=== PATIENT | male | born 1945 | race African-American/Black ===

== ENCOUNTER 2017-01-18 14:55 | Inpatient (IN) | payer MEDICARE ==
--- NOTE | 2017-01-18 14:59 | ER Document Report ---
ED Medical Screen (RME) - General Stated Complaint: CHEST PAIN Notes: Patient is a 71-year-old male presents emergency Department complaining of nonproductive cough with associated chest pain, nasal and chest congestion, fever. denies COPD, asthma, smokes weed. lower lobe wheezing bilaterally, NAD, alert. I have greeted and performed a rapid initial assessment of this patient. A comprehensive ED assessment and evaluation of the patient, analysis of test results and completion of the medical decision making process will be conducted by additional ED providers. TRAVEL OUTSIDE OF THE [place] IN LAST 30 DAYS: No - Related Data Allergies/Adverse Reactions: No Known Allergies Allergy (Verified 01/07/15 16:06) Past Medical History - Past Medical History Cardiac Medical History: Reports: Hx Hypercholesterolemia, Hx Hypertension Denies: Hx Coronary Artery Disease, Hx Heart Attack Pulmonary Medical History: Denies: Hx Asthma, Hx Bronchitis, Hx COPD, Hx Pneumonia Neurological Medical History: Denies: Hx Cerebrovascular Accident, Hx Seizures Endocrine Medical History: Reports: Hx Diabetes Mellitus Type 2 Musculoskeltal Medical History: Reports Hx Arthritis, Reports Hx Gout Psychiatric Medical History: Denies: Hx Depression Past Surgical History: Reports: Hx Cardiac Catheterization. Denies: Hx Pacemaker - Immunizations Hx Diphtheria, Pertussis, Tetanus Vaccination: No
[2017-01-18] MEDS ORDERED: ALBUTEROL SULFATE 0.083% NEB 2.5 MG/3 ML AMPUL NEB ONE (15:03)
[2017-01-18] MEDS ORDERED: IPRATROPIUM/ALBUTEROL 0.5-2.5 MG/3 ML AMPUL NEB ONE (15:36)
[2017-01-18] MEDS ORDERED: PREDNISONE 20 MG TABLET PO ONE (15:36)
[2017-01-18 15:40] LABS: ABSOLUTE LYMPHOCYTES (AUTO) 0.6 10^3/uL (0.5-4.7); ABSOLUTE MONOCYTES (AUTO) 0.5 10^3/uL (0.1-1.4); ABSOLUTE NEUT (AUTO) 4.1 10^3/uL (1.7-8.2); BASOPHILS % (AUTO) 0.9 % (0-2); EOSINOPHILS % (AUTO) 0.1 % (0-6); HEMATOCRIT 48.4 % (37.9-51.0); HEMOGLOBIN 16.3 g/dL (13.5-17.0); HGB HCT DIFFERENCE 0.5; LYMPHOCYTES % (AUTO) 11.6 % (13-45); MEAN CORPUSCULAR HEMOGLOBIN 29.4 pg (27.0-33.4); MEAN CORPUSCULAR HGB CONC 33.6 g/dL (32.0-36.0); MEAN CORPUSCULAR VOLUME 88 fl (80-97); MONOCYTES % (AUTO) 8.7 % (3-13); RED BLOOD COUNT 5.52 10^6/uL (4.35-5.55); SEGMENTED NEUTROPHILS % (AUTO) 78.7 % (42-78); WHITE BLOOD COUNT 5.3 10^3/uL (4.0-10.5)
--- NOTE | 2017-01-18 15:42 | ER Document Report ---
ED Respiratory Problem - General Chief Complaint: Cough Stated Complaint: CHEST PAIN Time seen by provider: 15:37 Mode of Arrival: Ambulatory Information source: Patient Notes: 71-year-old male presents to ED for cough congestion body aches chest pain nasal drainage fever for the last couple days. He states he does not smoke but he does smoke weed. TRAVEL OUTSIDE OF THE [place] IN LAST 30 DAYS: No - HPI Patient complains to provider of: Other - Cough congestion and body aches chest pain Onset: Last week Duration: Continuous - Last week Initiating Event: URI Quality of pain: Achy Severity: Severe Pain Level: 3 Context: Other - States he smokes "weed" does not smoke cigarettes Short of Breath: Moderate Chest pain/discomfort: Tightness Cough: Nonproductive Sputum amount: None Associated symptoms: Cough, Fever, PND, Runny nose, Short of breath, Wheezing Similar symptoms previously: Yes Recently seen / treated by doctor: No - Related Data Allergies/Adverse Reactions: No Known Allergies Allergy (Verified 01/07/15 16:06) Past Medical History - General Information source: Patient - Social History Smoking Status: Never Smoker Cigarette use (# per day): No Chew tobacco use (# tins/day): No Smoking Education Provided: No Frequency of alcohol use: None Drug Abuse: Marijuana Lives with: Family Family History: Arthritis, Hyperlipidemia, Hypertension Patient has suicidal ideation: No Patient has homicidal ideation: No - Past Medical History Cardiac Medical History: Reports: Hx Hypercholesterolemia, Hx Hypertension Pulmonary Medical History: Reports: None EENT Medical History: Reports: None Endocrine Medical History: Reports: Hx Diabetes Mellitus Type 2 Renal/ Medical History: Reports: None Malignancy Medical History: Reports None GI Medical History: Reports: None Musculoskeltal Medical History: Reports Hx Arthritis, Reports Hx Gout Skin Medical History: Reports None Psychiatric Medical History: Reports: None Traumatic Medical History: Reports: None Infectious Medical History: Reports: None Past Surgical History: Reports: Hx Cardiac Catheterization - Immunizations Immunizations up to date: No Hx Diphtheria, Pertussis, Tetanus Vaccination: No History of Influenza Vaccine for 08/2016 - 01/2017 Season: No Review of Systems - Review of Systems Constitutional: Fever EENT: Nose discharge, Sinus discharge Cardiovascular: Chest pain - From cough Respiratory: Cough, Short of breath, Wheezing Gastrointestinal: No symptoms reported Genitourinary: No symptoms reported Male Genitourinary: No symptoms reported Musculoskeletal: Other - Bodyaches Skin: No symptoms reported Hematologic/Lymphatic: No symptoms reported Neurological/Psychological: No symptoms reported Physical Exam - Vital signs Vitals: Temp Pulse Resp BP Pulse Ox 98.9 F 86 20 132/74 H 92 01/18/17 15:01 01/18/17 15:01 01/18/17 15:01 01/18/17 15:01 01/18/17 15:01 Interpretation: Normal - General General appearance: Appears well, Alert - HEENT Head: Normocephalic, Atraumatic Eyes: Normal Pupils: PERRL Ears: Normal External canal: Normal Tympanic membrane: Normal Sinus: Normal Nasal: Purulent discharge, Swelling Mouth/Lips: Normal Mucous membranes: Normal Pharynx: Post nasal drainage Neck: Normal - Respiratory Respiratory status: No respiratory distress Chest status: Pain with deep breathing Breath sounds: Nonproductive cough, Wheezing Chest palpation: Normal - Cardiovascular Rhythm: Regular Heart sounds: Normal auscultation Murmur: No - Abdominal Inspection: Normal Distension: No distension Bowel sounds: Normal Tenderness: Nontender Organomegaly: No organomegaly - Back Back: Normal, Nontender - Extremities General upper extremity: Normal inspection, Nontender, Normal color, Normal ROM , Normal temperature General lower extremity: Normal inspection, Nontender, Normal color, Normal ROM , Normal temperature, Normal weight bearing. No: Blue's sign - Neurological Neuro grossly intact: Yes Cognition: Normal Orientation: AAOx4 [place] Coma Scale Eye Opening: Spontaneous [place] Coma Scale Verbal: Oriented [place] Coma Scale Motor: Obeys Commands [place] Coma Scale Total: 15 Speech: Normal Motor strength normal: LUE, RUE, LLE, RLE Sensory: Normal - Psychological Associated symptoms: Normal affect, Normal mood - Skin Skin Temperature: Warm Skin Moisture: Dry Skin Color: Normal Course - Re-evaluation Re-evalutation: 01/18/17 19:[address] Casanova and had him examine patient. He recommended patient be ambulated on pulse ox to see what his oxygen does when walking. He walked about to the door and his pulse ox was down to 88 is rest respirations are up to 28 so he was returned to bed. After repositioning the patient several times his O2 went back up to 92. States his lungs feel tight. Dr. Casanova recommended admitting the patient overnight for observation. Dr. Muñiz was paged and when he returned his call stated he would admit him for telemetry FOR COPD exacerbation. When I went in to speak to the patient the patient was scratched on in the bed again and his O2 sat was 89. Repositioning the patient and his O2 went straight back up to 92. - Vital Signs Vital signs: Temp Pulse Resp BP Pulse Ox 98.9 F 86 19 140/55 H 92 01/18/17 15:01 01/18/17 15:01 01/18/17 19:01 01/18/17 19:00 01/18/17 19:01 - Laboratory Result Diagrams: 01/18/17 15:14 01/18/17 15:14 Laboratory results interpreted by me: 01/18/17 01/18/17 01/18/17 15:14 15:14 15:14 RDW 15.0 H Seg Neutrophils % 78.7 H Lymphocytes % 11.6 L Carbon Dioxide 21 L BUN 21 H Glucose 115 H Creatine Kinase 244 H - Diagnostic Test Radiology reviewed: Image reviewed, Reports reviewed Discharge - Discharge Clinical Impression: COPD exacerbation Disposition: ADMITTED OBSERVATION [facility] Admitted: Telemetry
[2017-01-18 15:51] LABS: ALANINE AMINOTRANSFERASE 39 U/L (21-72); ALKALINE PHOSPHATASE 109 U/L (38-126); ANION GAP 16 (5-19); ASPARTATE AMINO TRANSFERASE 50 U/L (17-59); BILIRUBIN,TOTAL 0.6 mg/dL (0.2-1.3); BLOOD UREA NITROGEN 21 mg/dL (7-20); CALCIUM 8.8 mg/dL (8.4-10.2); CARBON DIOXIDE 21 mmol/L (22-30); CHLORIDE 104 mmol/L (98-107); CREATININE RESULT 1.15 mg/dL (0.52-1.25); GLUCOSE 115 mg/dL (75-110); POTASSIUM 3.9 mmol/L (3.6-5.0); SODIUM 140.5 mmol/L (137-145); TOTAL PROTEIN 7.3 g/dL (6.3-8.2)
[2017-01-18 16:07] LABS: CREATINE KINASE MB < 0.22 ng/mL (<4.55); TROPONIN I < 0.012 ng/mL
--- NOTE | 2017-01-18 16:07 | EKG REPORT ---
SEVERITY:- ABNORMAL ECG - SINUS RHYTHM BIATRIAL ABNORMALITIES : Confirmed by: Oralia Andino MD 18-Jan-2017 16:06:33
[2017-01-18] MEDS ORDERED: LACTULOSE SYRUP 20 GM/30 ML UDCUP PO ONE (19:34)
[2017-01-18] MEDS ORDERED: ACETAMINOPHEN 325 MG TABLET PO PRN (19:36)
[2017-01-18] MEDS ORDERED: GLUCAGON,HUMAN RECOMB 1 MG INJ IM PRN (19:36)
[2017-01-18] MEDS ORDERED: DEXTROSE 40% GEL 15 GM TUBE PO PRN ×2 (19:36)
[2017-01-18] MEDS ORDERED: ONDANSETRON HCL INJ/PF 4 MG/2 ML SDV IV PRN (19:36)
[2017-01-18] MEDS ORDERED: IPRATROPIUM/ALBUTEROL 0.5-2.5 MG/3 ML AMPUL NEB PRN (19:36)
[2017-01-18] MEDS ORDERED: DEXTROSE 50%-WATER 25 GM/50 ML DISP.SYRIN IV PRN ×2 (19:36)
[2017-01-18] MEDS ORDERED: FLUTICASONE NASAL SPRAY 50 MCG/SPRY 120 SPRAY/16 GM NASL ONE (20:00)
[2017-01-18] MEDS ORDERED: LORATADINE 10 MG TABLET PO ONE (20:00)
[2017-01-18] MEDS: IPRATROPIUM/ALBUTEROL 0.5-2.5 MG/3 ML AMPUL NEB SCH (20:46)
[2017-01-18 20:53] LABS: ARTERIAL BLOOD BASE EXCESS -2.7 mmol/L; ARTERIAL BLOOD O2 SATURATION 79.6 % (94-98)
[2017-01-18] MEDS: HEPARIN SOD (PORCINE) 5,000 UNIT/ML 1 ML SYRINGE SUBCUT SCH (22:53)
[2017-01-19] MEDS: INSULIN LISPRO 100 UNIT/ML 3 ML VIAL SUBCUT PRN (00:48)
[2017-01-19] MEDS ORDERED: LEVOFLOXACIN 750 MG/D5W RTU 750 MG/150 ML RTUPB IV ONE (01:00)
[2017-01-19] MEDS: IPRATROPIUM/ALBUTEROL 0.5-2.5 MG/3 ML AMPUL NEB SCH ×4 (02:39→21:00)
[2017-01-19 05:52] LABS: ABSOLUTE LYMPHOCYTES (AUTO) 0.5 10^3/uL (0.5-4.7); ABSOLUTE MONOCYTES (AUTO) 0.4 10^3/uL (0.1-1.4); ABSOLUTE NEUT (AUTO) 1.8 10^3/uL (1.7-8.2); EOSINOPHILS % (AUTO) 0.2 % (0-6); HEMATOCRIT 48.9 % (37.9-51.0); HEMOGLOBIN 16.5 g/dL (13.5-17.0); HGB HCT DIFFERENCE 0.6; LYMPHOCYTES % (AUTO) 18.5 % (13-45); MEAN CORPUSCULAR HEMOGLOBIN 29.6 pg (27.0-33.4); MEAN CORPUSCULAR HGB CONC 33.8 g/dL (32.0-36.0); MEAN CORPUSCULAR VOLUME 88 fl (80-97); MONOCYTES % (AUTO) 15.3 % (3-13); RED BLOOD COUNT 5.58 10^6/uL (4.35-5.55); RED CELL DISTRIBUTION WIDTH 14.8 % (11.5-14.0)
[2017-01-19 06:11] LABS: ANION GAP 17 (5-19); BLOOD UREA NITROGEN 18 mg/dL (7-20); CALCIUM 9.1 mg/dL (8.4-10.2); CARBON DIOXIDE 19 mmol/L (22-30); CHLORIDE 105 mmol/L (98-107); CREATININE RESULT 0.87 mg/dL (0.52-1.25); GLUCOSE 151 mg/dL (75-110); POTASSIUM 4.3 mmol/L (3.6-5.0); SODIUM 140.9 mmol/L (137-145)
[2017-01-19 06:17] LABS: WHITE BLOOD COUNT 2.8 10^3/uL (4.0-10.5)
--- NOTE | 2017-01-19 06:21 | PDOC H&P ---
History of Present Illness Admission Date/PCP: 01/18/17 19:36 Patient complains of: Shortness of breath and cough History of Present Illness: MICHAEL JIMENEZ is a 71 year old male with a past medical history of asthma, hypertension, osteoarthritis, and gout who had been in his usual state of health until approximately 3 days prior to presentation with the onset of a productive cough of yellow sputum and shortness of breath subjective fever and chills denies rhinorrhea or sore throat. In the emergency room his found to have an oxygen saturation in the 80s and tachycardic on ambulation Denying chest pain or palpitations or nausea vomiting. Denies recent antibiotics or infectious contacts Past Medical History Cardiac Medical History: Reports: Hyperlipidema, Hypertension Denies: Coronary Artery Disease, Myocardial Infarction Pulmonary Medical History: Reports: None, Chronic Obstructive Pulmonary Disease (COPD) Denies: Asthma, Bronchitis, Pneumonia, Tuberculosis EENT Medical History: Reports: None Neurological Medical History: Denies: Seizures Endocrine Medical History: Reports: Diabetes Mellitus Type 2 Renal/ Medical History: Reports: None Denies: End Stage Renal Disease Malignancy Medical History: Reports: None GI Medical History: Reports: None Denies: Cirrhosis, Gastroesophageal Reflux Disease Musculoskeltal Medical History: Reports: Arthritis, Gout Skin Medical History: Reports: None Psychiatric Medical History: Reports: None Denies: Bipolar Disorder, Depression Traumatic Medical History: Reports: None Hematology: Denies: Anemia, Bleeding Tendencies Infectious Medical History: Reports: None Past Surgical History Past Surgical History: Reports: Cardiac Catheterization Denies: Pacemaker Social History Information Source: Patient Lives with: Family Smoking Status: Never Smoker Frequency of Alcohol Use: None Hx Recreational Drug Use: Yes Drugs: Marijuana Hx Prescription Drug Abuse: Yes - Advance Directive Resuscitation Status: Full Code Family History Family History: Arthritis, Hyperlipidemia, Hypertension Parental Family History Reviewed: Yes Children Family History Reviewed: Yes Sibling(s) Family History Reviewed.: Yes Medication/Allergy Home Medications: Allopurinol [Zyloprim 300 mg Tablet] 300 mg PO DAILY 12/05/14 Ergocalciferol (Vitamin D2) [Vitamin D2] 50,000 unit PO Q7D 12/05/14 Etodolac 400 mg PO BID 12/05/14 Metformin HCl [Glucophage] 500 mg PO BIDACBS 12/05/14 Nateglinide [Starlix 60 mg Tablet] 60 mg PO TID 12/05/14 Nifedipine [Nifedipine ER] 90 mg PO DAILY 12/05/14 Triamcinolone Acetonide [Aristocort 0.1% Cream] 1 applic TP BID 12/05/14 Amitriptyline HCl 25 mg PO HSP 01/18/17 Amlodipine Besylate [Amlodipine Besylate] 10 mg PO DAILY 01/18/17 Atorvastatin Calcium 40 mg PO DAILY 01/18/17 Fenofibrate,Micronized [Fenofibrate] 134 mg PO DAILY 01/18/17 Glimepiride [Glimepiride] 2 mg PO DAILY 01/18/17 Hydrocodone/Acetaminophen [Vicodin 5-300 mg Tablet] 1 - 2 tab PO ASDIR PRN 01/18 Allergies/Adverse Reactions: No Known Allergies Allergy (Verified 01/07/15 16:06) Review of Systems Constitutional: ABSENT: chills, fever(s), headache(s), weight gain, weight loss Eyes: ABSENT: visual disturbances Ears: ABSENT: hearing changes Cardiovascular: ABSENT: chest pain, dyspnea on exertion, edema, orthropnea, palpitations Respiratory: ABSENT: cough, hemoptysis Gastrointestinal: ABSENT: abdominal pain, constipation, diarrhea, hematemesis, hematochezia, nausea, vomiting Genitourinary: ABSENT: dysuria, hematuria Musculoskeletal: ABSENT: joint swelling Integumentary: ABSENT: rash, wounds Neurological: ABSENT: abnormal gait, abnormal speech, confusion, dizziness, focal weakness, syncope Psychiatric: ABSENT: anxiety, depression, homidical ideation, suicidal ideation Endocrine: ABSENT: cold intolerance, heat intolerance, polydipsia, polyuria Hematologic/Lymphatic: ABSENT: easy bleeding, easy bruising Physical Exam Vital Signs: Temp Pulse Resp BP Pulse Ox 97.7 F 75 16 142/72 H 94 01/19/17 00:00 01/19/17 02:40 01/19/17 02:40 01/19/17 00:00 01/19/17 00:00 Intake & Output 01/17/17 01/18/17 01/19/17 11:59 11:59 11:59 Weight 91.8 kg General appearance: PRESENT: cooperative, mild distress Head exam: PRESENT: atraumatic, normocephalic Eye exam: PRESENT: conjunctiva pink, EOMI, PERRLA. ABSENT: scleral icterus Ear exam: PRESENT: normal external ear exam Mouth exam: PRESENT: moist, tongue midline Neck exam: ABSENT: carotid bruit, JVD, lymphadenopathy, thyromegaly Respiratory exam: PRESENT: accessory muscle use, clear to auscultation sohan, prolonged expiratory phas, rales, rhonchi, symmetrical, tachypnea. ABSENT: wheezes Cardiovascular exam: PRESENT: RRR. ABSENT: diastolic murmur, rubs, systolic murmur Pulses: PRESENT: normal dorsalis pedis pul Vascular exam: PRESENT: normal capillary refill GI/Abdominal exam: PRESENT: normal bowel sounds, soft. ABSENT: distended, guarding, mass, organolmegaly, rebound, tenderness Rectal exam: PRESENT: deferred Extremities exam: PRESENT: full ROM. ABSENT: calf tenderness, clubbing, pedal edema Neurological exam: PRESENT: alert, awake, oriented to person, oriented to place , oriented to time, oriented to situation, CN II-XII grossly intact. ABSENT: motor sensory deficit Psychiatric exam: PRESENT: appropriate affect, normal mood. ABSENT: homicidal ideation, suicidal ideation Skin exam: PRESENT: dry, intact, warm. ABSENT: cyanosis, rash Results Laboratory Results: 01/18/17 20:30 Carbonic Acid 1.05 HCO3/H2CO3 Ratio 20:1 ABG pH 7.40 ABG pCO2 34.9 L ABG pO2 43.2 L ABG HCO3 21.2 ABG O2 Saturation 79.6 L ABG Base Excess -2.7 FiO2 93% Impressions: Chest X-Ray 01/18/17 15:03 IMPRESSION: NO ACUTE RADIOGRAPHIC FINDING IN THE CHEST. Assessment & Plan - Diagnosis (1) Pneumonia Is this a current diagnosis for this admission?: YesPlan: History and physical exam strongly suggest early pneumonia with bilateral rhonchi on exam. He is admitted to the telemetry floor with a pneumonia care set and empiric antibiotics, albuterol Atrovent, Flonase and Claritin (2) COPD exacerbation Is this a current diagnosis for this admission?: YesPlan: Please see #1 (3) Hypertensive disorder Is this a current diagnosis for this admission?: YesPlan: Uncontrolled hypertension likely secondary to the above he'll receive when necessary hydralazine and evaluation of BNP for possible heart failure component - Time Time Spent: 30 to 50 Minutes - Inpatient Certification Medical Necessity: Need Close Monitoring Due to Risk of Patient Decompensation
[2017-01-19] MEDS: HEPARIN SOD (PORCINE) 5,000 UNIT/ML 1 ML SYRINGE SUBCUT SCH ×3 (06:33→21:54)
[2017-01-19] MEDS ORDERED: (PENDING PHARMACY ID) (Ergocalciferol (Vitamin D2) [Vitamin D2] 50,000 UNIT) PO SCH (08:15)
[2017-01-19] MEDS: METFORMIN HCL 500 MG TABLET PO SCH ×2 (08:23→16:25)
[2017-01-19] MEDS ORDERED: ERGOCALCIFEROL (VITAMIN D2) 50000 UNIT (1.25 MG) CAPSULE PO SCH (09:00)
[2017-01-19] MEDS ORDERED: PREDNISONE 20 MG TABLET PO SCH (10:00)
[2017-01-19] MEDS ORDERED: (PENDING PHARMACY ID) (Glimepiride [Glimepiride] 2 MG) PO SCH (10:00)
[2017-01-19] MEDS ORDERED: ATORVASTATIN CALCIUM 40 MG TABLET PO SCH (10:00)
[2017-01-19] MEDS ORDERED: (PENDING PHARMACY ID) (Fenofibrate,Micronized [Fenofibrate] 134 MG) PO SCH (10:00)
[2017-01-19] MEDS: METHYLPREDNISOLONE INJ 125 MG/2 ML SDV IV SCH ×2 (12:32→17:51)
[2017-01-19] MEDS: FLUTICASONE NASAL SPRAY 50 MCG/SPRY 120 SPRAY/16 GM NASL SCH ×2 (12:32→21:53)
[2017-01-19] MEDS: FENOFIBRATE NANOCRYSTALLIZED 48 MG TABLET PO SCH (12:33)
[2017-01-19] MEDS: LORATADINE 10 MG TABLET PO SCH (12:33)
[2017-01-19] MEDS: DOCUSATE SODIUM 100 MG CAPSULE PO SCH ×2 (12:33→17:51)
[2017-01-19] MEDS: GLIMEPIRIDE 1 MG TABLET PO SCH (12:34)
[2017-01-19] MEDS: NATEGLINIDE 60 MG TABLET PO SCH ×2 (12:34→16:25)
[2017-01-19] MEDS: ALLOPURINOL 300 MG TABLET PO SCH (12:34)
[2017-01-19] MEDS ORDERED: NIFEDIPINE 30 MG TAB.ER.24 PO ONE (13:00)
[2017-01-19] MEDS: NIFEDIPINE 30 MG TAB.ER.24 PO SCH (13:59)
--- NOTE | 2017-01-19 17:06 | PDOC PROGRESS REPORT ---
Subjective Progress Note for:: 01/19/17 Subjective:: Patient reports he's feeling 100% better from this morning. Patient denies chest pain, shortness of breath, abdominal pain, nausea, vomiting , fevers, chills, diarrhea, constipation, headache, new onset weakness. Physical Exam Vital Signs: Temp Pulse Resp BP Pulse Ox 97.7 F 75 16 142/72 H 94 01/19/17 00:00 01/19/17 02:40 01/19/17 02:40 01/19/17 00:00 01/19/17 00:00 Intake & Output 01/18/17 01/19/17 01/20/17 06:59 06:59 06:59 Weight 91.8 kg Exam: General: Awake alert and oriented x3, no acute respiratory distress HEENT: AT/NC, PERRL, EOMI, oropharynx is slightly dry, pink, no scleral icterus , no conjunctival injection Neck: No JVD, trachea midline Chest: Rhonchi left lower lobe, left upper lobe, right lower lobe, occasional wheeze right side greater than left CV: Regular rate and rhythm, normal S1 and S2, no murmur, rub, or gallop Abdomen: Protuberant, Soft, nontender to palpation, nondistended, active bowel sounds; no rebound, rigidity, or guarding Extremities: No cyanosis, clubbing or edema Neuro: Cranial nerves II through XII are grossly intact without focal deficits; awake alert and oriented x3 Psych: Normal mood and affect Results Laboratory Results: 01/19/17 05:22 01/19/17 05:22 01/18/17 01/19/17 01/19/17 20:30 05:22 05:22 WBC 2.8 L D RBC 5.58 H Hgb 16.5 Hct 48.9 MCV 88 MCH 29.6 MCHC 33.8 RDW 14.8 H Plt Count 180 Seg Neutrophils % 65.0 Lymphocytes % 18.5 Monocytes % 15.3 H Eosinophils % 0.2 Basophils % 1.0 Absolute Neutrophils 1.8 Absolute Lymphocytes 0.5 Absolute Monocytes 0.4 Absolute Eosinophils 0.0 Absolute Basophils 0.0 Carbonic Acid 1.05 HCO3/H2CO3 Ratio 20:1 ABG pH 7.40 ABG pCO2 34.9 L ABG pO2 43.2 L ABG HCO3 21.2 ABG O2 Saturation 79.6 L ABG Base Excess -2.7 FiO2 93% Sodium 140.9 Potassium 4.3 Chloride 105 Carbon Dioxide 19 L Anion Gap 17 BUN 18 Creatinine 0.87 Est GFR ( Amer) > 60 Est GFR (Non-Af Amer) > 60 Glucose 151 H Calcium 9.1 Impressions: Chest X-Ray 01/18/17 15:03 IMPRESSION: NO ACUTE RADIOGRAPHIC FINDING IN THE CHEST. Assessment & Plan - Diagnosis (1) COPD exacerbation Is this a current diagnosis for this admission?: YesPlan: Patient on Solu-Medrol, scheduled nebulized treatments. Pending sputum specimen. (2) Hypertension Is this a current diagnosis for this admission?: YesPlan: Will initiate patient on Cozaar in addition to his nifedipine. Patient reports to be reportedly on nifedipine and Norvasc. Will clarify with pharmacy. 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 (4) Pneumonia Qualifiers: Pneumonia type: due to unspecified organism Laterality: bilateral Lung location: unspecified part of lung Qualified Code(s): J18.9 - Pneumonia, unspecified organism Is this a current diagnosis for this admission?: YesPlan: Patient appears to have a multilobar pneumonia left greater than right. Will gently rehydrate patient and repeat chest x-ray tomorrow. Nebulized treatments , and sputum specimen. (5) Glaucoma Qualifiers: Glaucoma type: unspecified type Laterality: right Qualified Code(s) : H40.9 - Unspecified glaucoma Is this a current diagnosis for this admission?: No - Time Time Spent with patient: 25-34 minutes Medications reviewed and adjusted accordingly: Yes
[2017-01-19] MEDS ORDERED: METFORMIN HCL 500 MG TABLET PO ONE ×2 (18:00)
[2017-01-19] MEDS: NORMAL SALINE 1000 ML 1,000 ML IV PRN (18:32)
[2017-01-19] MEDS: AMITRIPTYLINE HCL 25 MG TABLET PO SCH (21:53)
[2017-01-19] MEDS ORDERED: LOSARTAN POTASSIUM 25 MG TABLET PO SCH (22:00)
[2017-01-19] MEDS ORDERED: LEVOFLOXACIN 750 MG/D5W RTU 750 MG/150 ML RTUPB IV SCH (22:00)
[2017-01-20] MEDS: METHYLPREDNISOLONE INJ 125 MG/2 ML SDV IV SCH ×3 (01:55→17:33)
[2017-01-20] MEDS: IPRATROPIUM/ALBUTEROL 0.5-2.5 MG/3 ML AMPUL NEB SCH ×4 (02:43→19:42)
[2017-01-20 05:40] LABS: ABSOLUTE BASOPHILS # (AUTO) 0.1 10^3/uL (0.0-0.2); ABSOLUTE LYMPHOCYTES (AUTO) 0.6 10^3/uL (0.5-4.7); ABSOLUTE MONOCYTES (AUTO) 0.4 10^3/uL (0.1-1.4); ABSOLUTE NEUT (AUTO) 3.1 10^3/uL (1.7-8.2); BASOPHILS % (AUTO) 1.3 % (0-2); HEMATOCRIT 43.4 % (37.9-51.0); HEMOGLOBIN 14.7 g/dL (13.5-17.0); HGB HCT DIFFERENCE 0.7; LYMPHOCYTES % (AUTO) 15.4 % (13-45); MEAN CORPUSCULAR HEMOGLOBIN 29.8 pg (27.0-33.4); MEAN CORPUSCULAR HGB CONC 33.9 g/dL (32.0-36.0); MEAN CORPUSCULAR VOLUME 88 fl (80-97); RED BLOOD COUNT 4.93 10^6/uL (4.35-5.55); RED CELL DISTRIBUTION WIDTH 14.8 % (11.5-14.0); SEGMENTED NEUTROPHILS % (AUTO) 73.3 % (42-78); WHITE BLOOD COUNT 4.2 10^3/uL (4.0-10.5)
[2017-01-20 05:55] LABS: ANION GAP 16 (5-19); BLOOD UREA NITROGEN 26 mg/dL (7-20); CALCIUM 9.4 mg/dL (8.4-10.2); CARBON DIOXIDE 20 mmol/L (22-30); CHLORIDE 105 mmol/L (98-107); CREATININE RESULT 0.96 mg/dL (0.52-1.25); GLUCOSE 173 mg/dL (75-110); POTASSIUM 3.7 mmol/L (3.6-5.0); SODIUM 141.4 mmol/L (137-145)
[2017-01-20] MEDS: HEPARIN SOD (PORCINE) 5,000 UNIT/ML 1 ML SYRINGE SUBCUT SCH ×3 (06:31→22:09)
[2017-01-20] MEDS: METFORMIN HCL 500 MG TABLET PO SCH ×2 (08:19→16:10)
[2017-01-20] MEDS: NATEGLINIDE 60 MG TABLET PO SCH ×3 (08:20→16:10)
[2017-01-20] MEDS: DOCUSATE SODIUM 100 MG CAPSULE PO SCH ×2 (09:33→17:33)
[2017-01-20] MEDS: ALLOPURINOL 300 MG TABLET PO SCH (09:33)
[2017-01-20] MEDS: FLUTICASONE NASAL SPRAY 50 MCG/SPRY 120 SPRAY/16 GM NASL SCH ×2 (09:34→22:06)
[2017-01-20] MEDS: GLIMEPIRIDE 1 MG TABLET PO SCH (09:34)
[2017-01-20] MEDS: FENOFIBRATE NANOCRYSTALLIZED 48 MG TABLET PO SCH (09:34)
[2017-01-20] MEDS: LORATADINE 10 MG TABLET PO SCH (09:35)
[2017-01-20] MEDS: NIFEDIPINE 30 MG TAB.ER.24 PO SCH (09:36)
[2017-01-20] MEDS ORDERED: LOSARTAN POTASSIUM 25 MG TABLET PO SCH (09:36)
--- NOTE | 2017-01-20 10:03 | Physician Advisory Note ---
Physician Advisor ProgressNote .: Pursuant to the plan for [facility], I have reviewed the medical record for this patient. Physician Advisor Statement: Possible documentation opportunities if attending agrees: 1. "BLL PNA, suspect Gram-neg type" 2. ? - "not yet back to baseline" on 01/19, 01/20? Status: 71yo with underlying DM-2, COPD, HTN in with COPD exac, suspected BLL PNA ( suspect GN), hypoxemia & tachypnea with ambulation in ED, next day not yet back to baseline with new leukopenia present. Attending ordered extremely aggressive regimen of Solumedrol 125 q8h, Duonebs q6h scheduled, IV LEvaquin, O2. As of 01/20 AM, pt in hospital x 2 necessary midnights already, & still hypoxemic as low as 93% on 2L O2, for a P/F ratio of 243,, equivalent to O2 sat 86% or PaO2 51mmHg on RA. Tx in inpatient hospital setting medically reasonable & necessary to protect pt' s health, safety, & medical condition. Appropriate for Inpt status. Thanks! CK
[2017-01-20] MEDS ORDERED: CEFEPIME 2 GM/D5W RTU 50 ML IV SCH (10:15)
[2017-01-20] MEDS: NORMAL SALINE 1000 ML 1,000 ML IV PRN (10:35)
[2017-01-20] MEDS: LOSARTAN POTASSIUM 50 MG TABLET PO SCH ×2 (10:55→22:06)
[2017-01-20] MEDS: CEFEPIME HCL 2 GM in DEXTROSE 5%-WATER 50 ML IV SCH ×2 (10:57→22:07)
[2017-01-20] MEDS: INSULIN LISPRO 100 UNIT/ML 3 ML VIAL SUBCUT PRN (11:12)
[2017-01-20] MEDS ORDERED: VANCOMYCIN HCL 0 MG in DEXTROSE 5%-WATER 250 ML IV NR (14:00)
--- NOTE | 2017-01-20 14:00 | PDOC PROGRESS REPORT ---
Subjective Progress Note for:: 01/20/17 Subjective:: Patient reports that he's feeling more short of breath today. Patient denies chest pain, shortness of breath, abdominal pain, nausea, vomiting , fevers, chills, diarrhea, constipation, headache, new onset weakness. Physical Exam Vital Signs: Temp Pulse Resp BP Pulse Ox 97.4 F 81 18 134/57 H 91 L 01/20/17 11:18 01/20/17 11:18 01/20/17 11:18 01/20/17 11:18 01/20/17 11:18 Intake & Output 01/19/17 01/20/17 01/21/17 06:59 06:59 06:59 Intake Total 1131 Output Total 600 Balance 531 Weight 94.2 kg Exam: General: Awake alert and oriented x3, no acute respiratory distress, ill appearing HEENT: AT/NC, PERRL, EOMI, oropharynx is slightly dry, pink, no scleral icterus , no conjunctival injection Neck: No JVD, trachea midline Chest: Rhonchi left lower lobe, left upper lobe, right lower lobe, occasional wheeze right lower lobe, prolonged expiratory phase CV: Regular rate and rhythm, normal S1 and S2, no murmur, rub, or gallop Abdomen: Protuberant, Soft, nontender to palpation, nondistended, active bowel sounds; no rebound, rigidity, or guarding Extremities: No cyanosis, clubbing or edema Neuro: Cranial nerves II through XII are grossly intact without focal deficits; awake alert and oriented x3 Psych: Normal mood and affect Results Laboratory Results: 01/20/17 05:16 01/20/17 05:16 01/20/17 01/20/17 05:16 05:16 WBC 4.2 RBC 4.93 Hgb 14.7 Hct 43.4 MCV 88 MCH 29.8 MCHC 33.9 RDW 14.8 H Plt Count 206 Seg Neutrophils % 73.3 Lymphocytes % 15.4 Monocytes % 10.0 Eosinophils % 0.0 Basophils % 1.3 Absolute Neutrophils 3.1 Absolute Lymphocytes 0.6 Absolute Monocytes 0.4 Absolute Eosinophils 0.0 Absolute Basophils 0.1 Sodium 141.4 Potassium 3.7 Chloride 105 Carbon Dioxide 20 L Anion Gap 16 BUN 26 H Creatinine 0.96 Est GFR ( Amer) > 60 Est GFR (Non-Af Amer) > 60 Glucose 173 H Calcium 9.4 Impressions: Chest X-Ray 01/20/17 06:00 IMPRESSION: Rehydration versus progressing pneumonia. Assessment & Plan - Diagnosis (1) Pneumonia Qualifiers: Pneumonia type: due to unspecified organism Laterality: bilateral Lung location: unspecified part of lung Qualified Code(s): J18.9 - Pneumonia, unspecified organism Is this a current diagnosis for this admission?: YesPlan: Patient continues to be hypoxic, is ill-appearing, and not yet back to baseline. Patient has diffuse multilobar pneumonia. Concern at this time for atypical organisms, gram-negative organisms, and MRSA. We'll send the urine Legionella. Sputum culture currently pending, blood cultures currently negative. Currently on Levaquin day #2, and have added cefepime and vancomycin today. (2) COPD exacerbation Is this a current diagnosis for this admission?: YesPlan: Patient on Solu-Medrol, scheduled nebulized treatments. Pending sputum specimen. (3) Hypertension Is this a current diagnosis for this admission?: YesPlan: Increase patient's Cozaar today. Continue nifedipine. Stop IV fluids. And when necessary hydralazine. 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 Continue glimepiride. (5) Glaucoma Qualifiers: Glaucoma type: unspecified type Laterality: right Qualified Code (s): H40.9 - Unspecified glaucoma Is this a current diagnosis for this admission?: No - Time Time Spent with patient: 25-34 minutes Medications reviewed and adjusted accordingly: Yes - Inpatient Certification Based on my medical assessment, after consideration of the patient's comorbidities, presenting symptoms, or acuity I expect that the services needed warrant INPATIENT care.: Yes I certify that my determination is in accordance with my understanding of Medicare's requirements for reasonable and necessary INPATIENT services [42 CFR 412.3e].: Yes Medical Necessity: Need for Nebulizer Therapy and Monitoring of Response, Need for IV Antibiotics Post Hospital Care: D/C Phlebotomy Services Technician Documentation
[2017-01-20] MEDS: VANCOMYCIN HCL 1,250 MG in DEXTROSE 5%-WATER 250 ML IV SCH (17:33)
[2017-01-20] MEDS ORDERED: LEVOFLOXACIN 750 MG TABLET PO SCH (22:00)
[2017-01-20] MEDS: AMITRIPTYLINE HCL 25 MG TABLET PO SCH (22:06)
[2017-01-20] MEDS: ATORVASTATIN CALCIUM 40 MG TABLET PO SCH (22:06)
[2017-01-21] MEDS: IPRATROPIUM/ALBUTEROL 0.5-2.5 MG/3 ML AMPUL NEB SCH ×4 (01:54→20:14)
[2017-01-21] MEDS: METHYLPREDNISOLONE INJ 125 MG/2 ML SDV IV SCH ×2 (01:54→09:56)
[2017-01-21 05:49] LABS: ABSOLUTE LYMPHOCYTES (AUTO) 0.7 10^3/uL (0.5-4.7); ABSOLUTE MONOCYTES (AUTO) 0.6 10^3/uL (0.1-1.4); ABSOLUTE NEUT (AUTO) 8.4 10^3/uL (1.7-8.2); BASOPHILS % (AUTO) 0.3 % (0-2); HEMATOCRIT 39.5 % (37.9-51.0); HEMOGLOBIN 13.5 g/dL (13.5-17.0); LYMPHOCYTES % (AUTO) 7.2 % (13-45); MEAN CORPUSCULAR HEMOGLOBIN 29.9 pg (27.0-33.4); MEAN CORPUSCULAR HGB CONC 34.1 g/dL (32.0-36.0); MEAN CORPUSCULAR VOLUME 88 fl (80-97); MONOCYTES % (AUTO) 6.4 % (3-13); RED BLOOD COUNT 4.51 10^6/uL (4.35-5.55); RED CELL DISTRIBUTION WIDTH 15.1 % (11.5-14.0); SEGMENTED NEUTROPHILS % (AUTO) 86.1 % (42-78)
[2017-01-21 06:03] LABS: WHITE BLOOD COUNT 9.8 10^3/uL (4.0-10.5)
[2017-01-21 06:15] LABS: ANION GAP 16 (5-19); BLOOD UREA NITROGEN 39 mg/dL (7-20); CARBON DIOXIDE 19 mmol/L (22-30); CHLORIDE 105 mmol/L (98-107); CREATININE RESULT 1.11 mg/dL (0.52-1.25); GLUCOSE 146 mg/dL (75-110); POTASSIUM 3.8 mmol/L (3.6-5.0); SODIUM 139.9 mmol/L (137-145)
[2017-01-21] MEDS: VANCOMYCIN HCL 1,250 MG in DEXTROSE 5%-WATER 250 ML IV SCH (06:24)
[2017-01-21] MEDS: HEPARIN SOD (PORCINE) 5,000 UNIT/ML 1 ML SYRINGE SUBCUT SCH ×3 (06:25→21:10)
[2017-01-21] MEDS: METFORMIN HCL 500 MG TABLET PO SCH (08:15)
[2017-01-21] MEDS: NATEGLINIDE 60 MG TABLET PO SCH ×2 (08:29→11:55)
[2017-01-21] MEDS: LORATADINE 10 MG TABLET PO SCH (09:55)
[2017-01-21] MEDS: FENOFIBRATE NANOCRYSTALLIZED 48 MG TABLET PO SCH (09:55)
[2017-01-21] MEDS: DOCUSATE SODIUM 100 MG CAPSULE PO SCH ×2 (09:55→17:43)
[2017-01-21] MEDS: ALLOPURINOL 300 MG TABLET PO SCH (09:55)
[2017-01-21] MEDS: GLIMEPIRIDE 1 MG TABLET PO SCH (09:56)
[2017-01-21] MEDS: CEFEPIME HCL 2 GM in DEXTROSE 5%-WATER 50 ML IV SCH (11:57)
[2017-01-21] MEDS: FLUTICASONE NASAL SPRAY 50 MCG/SPRY 120 SPRAY/16 GM NASL SCH (12:25)
[2017-01-21] MEDS: LOSARTAN POTASSIUM 50 MG TABLET PO SCH ×2 (12:28→21:10)
[2017-01-21] MEDS: NIFEDIPINE 30 MG TAB.ER.24 PO SCH (12:28)
[2017-01-21] MEDS ORDERED: ALBUTEROL SULFATE 0.083% NEB 2.5 MG/3 ML AMPUL NEB PRN (13:58)
--- NOTE | 2017-01-21 13:59 | PDOC PROGRESS REPORT ---
Subjective Progress Note for:: 01/21/17 Subjective:: Patient feels generally much better than he did on admission. Shortness of breath is improving. He still does not feel back to baseline. Patient denies fever, chills, headache, new focal weakness, chest pain, abdominal pain, nausea , vomiting, diarrhea, constipation. Physical Exam Vital Signs: Temp Pulse Resp BP Pulse Ox 97.9 F 75 16 135/64 H 94 01/21/17 12:00 01/21/17 13:30 01/21/17 13:30 01/21/17 12:00 01/21/17 12:00 Intake & Output 01/20/17 01/21/17 01/22/17 06:59 06:59 06:59 Intake Total 1131 1580 Output Total 600 Balance 531 1580 Weight 94.2 kg 95.2 kg GENERAL: No acute distress HEENT: Conjunctiva clear, nonicteric, moist mucous membranes, no JVD, midline trachea RESPIRATORY: Rhonchi heard in bilateral lower lung cruz posteriorly CARDIAC: Regular rate and rhythm, no murmurs/gallops/rubs ABDOMEN: Soft, nondistended, nontender, positive bowel sounds, no rebound, no guarding EXTREMETIES: No edema, cyanosis, clubbing NEUROLOGIC: Alert, oriented to person/place/time, CN's grossly intact, no focal deficits SKIN: No rash, wounds PSYCH: Normal mood, normal affect Results Laboratory Results: 01/21/17 04:46 01/21/17 04:46 01/21/17 01/21/17 04:46 04:46 WBC 9.8 D RBC 4.51 Hgb 13.5 Hct 39.5 MCV 88 MCH 29.9 MCHC 34.1 RDW 15.1 H Plt Count 195 Seg Neutrophils % 86.1 H Lymphocytes % 7.2 L Monocytes % 6.4 Eosinophils % 0.0 Basophils % 0.3 Absolute Neutrophils 8.4 H Absolute Lymphocytes 0.7 Absolute Monocytes 0.6 Absolute Eosinophils 0.0 Absolute Basophils 0.0 Sodium 139.9 Potassium 3.8 Chloride 105 Carbon Dioxide 19 L Anion Gap 16 BUN 39 H Creatinine 1.11 Est GFR ( Amer) > 60 Est GFR (Non-Af Amer) > 60 Glucose 146 H Calcium 9.0 Impressions: Chest X-Ray 01/21/17 06:00 IMPRESSION: Continued bibasilar densities. Assessment & Plan - Diagnosis (1) Acute hypoxemic respiratory failure Is this a current diagnosis for this admission?: YesPlan: Wean oxygen as tolerated to maintain O2 sat greater than 90%. (2) COPD exacerbation Is this a current diagnosis for this admission?: YesPlan: Discontinue IV Solu-Medrol. Start prednisone 40 mg daily. Continue scheduled duo nebs. When necessary albuterol nebulized treatments. (3) Diabetes mellitus Qualifiers: Diabetes mellitus type: type 2 Diabetes mellitus complication status: without complication Diabetes mellitus termite renewal inspector insulin use: without termite renewal inspector use Qualified Code(s): E11.9 - Type 2 diabetes mellitus without complications Is this a current diagnosis for this admission?: Yes (4) Pneumonia Qualifiers: Pneumonia type: due to unspecified organism Laterality: bilateral Lung location: unspecified part of lung Qualified Code(s): J18.9 - Pneumonia, unspecified organism Is this a current diagnosis for this admission?: YesPlan: Patient is afebrile with normal white blood count. Discontinue IV antibiotics. Start oral doxycycline. (5) Hypertensive disorder Is this a current diagnosis for this admission?: YesPlan: Continue Norvasc. - Time Time Spent with patient: 25-34 minutes Anticipated discharge: Home Within: within 24 hours
[2017-01-21] MEDS: ATORVASTATIN CALCIUM 40 MG TABLET PO SCH (21:09)
[2017-01-21] MEDS: DOXYCYCLINE HYCLATE 100 MG TABLET PO SCH (21:09)
[2017-01-21] MEDS: AMITRIPTYLINE HCL 25 MG TABLET PO SCH (21:10)
[2017-01-22] MEDS: IPRATROPIUM/ALBUTEROL 0.5-2.5 MG/3 ML AMPUL NEB SCH ×4 (03:24→20:47)
[2017-01-22] MEDS: HEPARIN SOD (PORCINE) 5,000 UNIT/ML 1 ML SYRINGE SUBCUT SCH ×3 (05:52→21:15)
[2017-01-22 06:04] LABS: CREATININE RESULT 0.82 mg/dL (0.52-1.25)
[2017-01-22] MEDS: LORATADINE 10 MG TABLET PO SCH (09:15)
[2017-01-22] MEDS: DOXYCYCLINE HYCLATE 100 MG TABLET PO SCH ×2 (09:15→21:14)
[2017-01-22] MEDS: AMLODIPINE BESYLATE 10 MG TABLET PO SCH (09:15)
[2017-01-22] MEDS: PREDNISONE 20 MG TABLET PO SCH (09:15)
[2017-01-22] MEDS: ALLOPURINOL 300 MG TABLET PO SCH (09:16)
[2017-01-22] MEDS: LOSARTAN POTASSIUM 50 MG TABLET PO SCH ×2 (09:16→21:15)
[2017-01-22] MEDS: FENOFIBRATE NANOCRYSTALLIZED 48 MG TABLET PO SCH (09:18)
[2017-01-22] MEDS: GLIMEPIRIDE 1 MG TABLET PO SCH (09:19)
[2017-01-22] MEDS: DOCUSATE SODIUM 100 MG CAPSULE PO SCH ×2 (09:21→19:03)
--- NOTE | 2017-01-22 15:49 | PDOC DISCHARGE SUMMARY ---
General - Admit/Disc Date/PCP Admission Date/Primary Care Provider: 01/19/17 10:05 Discharge Date: 01/22/17 - Discharge Diagnosis (1) Acute hypoxemic respiratory failure Is this a current diagnosis for this admission?: Yes (2) COPD exacerbation Is this a current diagnosis for this admission?: Yes (3) Diabetes mellitus Is this a current diagnosis for this admission?: Yes (4) Pneumonia Is this a current diagnosis for this admission?: Yes (5) Hypertensive disorder Is this a current diagnosis for this admission?: Yes - Additional Information Resuscitation Status: Full Code Discharge Diet: Cardiac, Diabetic Discharge Activity: Slowly Increase Activity Home Medications: Allopurinol [Zyloprim 300 mg Tablet] 300 mg PO DAILY 12/05/14 Triamcinolone Acetonide [Aristocort 0.1% Cream] 1 applic TP BID 12/05/14 Amitriptyline HCl 25 mg PO QHS 01/18/17 Amlodipine Besylate 10 mg PO DAILY 01/18/17 Atorvastatin Calcium 40 mg PO QHS 01/18/17 Fenofibrate,Micronized [Fenofibrate] 134 mg PO DAILY 01/18/17 Glimepiride 2 mg PO DAILY 01/18/17 Albuterol Sulfate [Proair Hfa Inhalation Aerosol 8.5 gm Mdi] 1 puff IH Q4 PRN # 1 mdi 01/22/17 Doxycycline Hyclate [Vibramycin 100 mg Tablet] 100 mg PO Q12 #10 tablet Prednisone [Deltasone 20 mg Tablet] 20 mg PO DAILY #5 tablet 01/22/17 History of Present Illness Patient complains of: Shortness of breath and cough History of Present Illness: MICHAEL JIMENEZ is a 71 year old male with a past medical history of asthma, hypertension, osteoarthritis, and gout who had been in his usual state of health until approximately 3 days prior to presentation with the onset of a productive cough of yellow sputum and shortness of breath subjective fever and chills denies rhinorrhea or sore throat. In the emergency room his found to have an oxygen saturation in the 80s and tachycardic on ambulation Denying chest pain or palpitations or nausea vomiting. Denies recent antibiotics or infectious contacts. Hospital Course Hospital Course: Patient was admitted for bibasilar pneumonia. He was treated with IV antibiotics and IV steroids. His condition quickly improved and he was eventually transitioned to oral antibiotic and oral steroid. He continued to improve. He was weaned off oxygen and O2 sat is stable on room air. His discharge home in stable condition. He will need follow-up chest x-ray in 3 weeks. Physical Exam Vital Signs: Temp Pulse Resp BP Pulse Ox 97.5 F 79 16 128/90 H 95 01/22/17 11:40 01/22/17 14:00 01/22/17 13:28 01/22/17 11:40 01/22/17 13:28 Intake & Output 01/21/17 01/22/17 01/23/17 06:59 06:59 06:59 Intake Total 1580 1450 Balance 1580 1450 Weight 95.2 kg 96.3 kg GENERAL: No acute distress HEENT: Conjunctiva clear, nonicteric, moist mucous membranes, no JVD, midline trachea RESPIRATORY: Clear to auscultation bilaterally, no wheezes, no rhonchi CARDIAC: Regular rate and rhythm, no murmurs/gallops/rubs ABDOMEN: Soft, nondistended, nontender, positive bowel sounds, no rebound, no guarding EXTREMETIES: No edema, cyanosis, clubbing NEUROLOGIC: Alert, oriented to person/place/time, CN's grossly intact, no focal deficits SKIN: No rash, wounds PSYCH: Normal mood, normal affect Results Laboratory Results: 01/21/17 04:46 01/22/17 05:41 01/22/17 05:41 Creatinine 0.82 Est GFR ( Amer) > 60 Est GFR (Non-Af Amer) > 60 Impressions: Chest X-Ray 01/21/17 06:00 IMPRESSION: Continued bibasilar densities. Qualifiers PATEINT BEING DISCHARGED WITH ANY OF THE FOLLOWING DIAGNOSIS?: No Plan Time Spent: Less than 30 Minutes
[2017-01-22] MEDS: ATORVASTATIN CALCIUM 40 MG TABLET PO SCH (21:14)
[2017-01-22] MEDS: AMITRIPTYLINE HCL 25 MG TABLET PO SCH (21:15)
[2017-01-23] MEDS: IPRATROPIUM/ALBUTEROL 0.5-2.5 MG/3 ML AMPUL NEB SCH ×2 (02:18→08:48)
[2017-01-23] MEDS: HEPARIN SOD (PORCINE) 5,000 UNIT/ML 1 ML SYRINGE SUBCUT SCH (05:13)
[2017-01-23 08:39] VITALS: BP 157/80
[2017-01-23] MEDS: ALLOPURINOL 300 MG TABLET PO SCH (08:45)
[2017-01-23] MEDS: PREDNISONE 20 MG TABLET PO SCH (08:45)
[2017-01-23] MEDS: LORATADINE 10 MG TABLET PO SCH (08:46)
[2017-01-23] MEDS: DOXYCYCLINE HYCLATE 100 MG TABLET PO SCH (08:46)
[2017-01-23] MEDS: AMLODIPINE BESYLATE 10 MG TABLET PO SCH (08:46)
[2017-01-23] MEDS: LOSARTAN POTASSIUM 50 MG TABLET PO SCH (08:46)
[2017-01-23] MEDS: FENOFIBRATE NANOCRYSTALLIZED 48 MG TABLET PO SCH (08:47)
[2017-01-23] MEDS: GLIMEPIRIDE 1 MG TABLET PO SCH (08:47)
[2017-01-26] MEDS ORDERED: ERGOCALCIFEROL (VITAMIN D2) 50000 UNIT (1.25 MG) CAPSULE PO SCH (10:00)
== END 2017-01-23 09:54 | disposition home or self-care (01) | DRG 190 ==
LOC: ER 14:55 → EH 19:36 → 5 21:15 → OBSVTOIN 01-19 10:05
PROVIDERS: ADMIT Internal Medicine; ATTEND Internal Medicine
PROC: 3E0F73Z Introduction of Anti-inflammatory into Respiratory Tract, Via Natural or Artificial Opening (ICD-10-PCS; principal; 2017-01-18)
DX: J44.0 Chronic obstructive pulmonary disease with (acute) lower respiratory infection (principal); J96.01 Acute respiratory failure with hypoxia; J18.9 Pneumonia, unspecified organism; J44.1 Chronic obstructive pulmonary disease with (acute) exacerbation; E11.9 Type 2 diabetes mellitus without complications; I10 Essential (primary) hypertension; J45.909 Unspecified asthma, uncomplicated; E78.5 Hyperlipidemia, unspecified; M10.9 Gout, unspecified; H40.9 Unspecified glaucoma; E78.00 Pure hypercholesterolemia, unspecified; F12.90 Cannabis use, unspecified, uncomplicated; Z79.899 Other long term (current) drug therapy; Z82.61 Family history of arthritis; Z82.49 Family history of ischemic heart disease and other diseases of the circulatory system
CPT/HCPCS: 36415; 71020; 80048; 80053; 80202; 82550; 82553; 82565; 82803; 82962; 83880; 84484; 85025; 87804; 93005; 93010; 94640; 94667; 94668; 94799; 99285; G0378; J0692; J1644; J1815; J1956; J2930; J3370; J3490; J7030; J7060; J7512; J7620

== ENCOUNTER → 2017-02-18 | Outpatient (CLI) | payer MEDICARE | LOC: RAD 10:21 | PROVIDERS: ATTEND Family Medicine Geriatric Medicine | DX: J15.9 Unspecified bacterial pneumonia (principal); J44.9 Chronic obstructive pulmonary disease, unspecified | CPT/HCPCS: 71020 ==

== ENCOUNTER → 2018-02-18 | Outpatient (CLI) | payer MEDICARE ==
--- NOTE | 2018-02-18 19:41 | XCELERA REPORT ---
[address] [address] Lower Extremity Arterial Evaluation Name: MICHAEL JIMENEZ Age: 72 yrs Gender: Male : 1945 Patient Status: Outpatient Patient Location: Study Date: 02/18/2018 03:05 PM Procedure: A color flow and duplex scan of the lower extremity arteries was performed bilaterally with velocity and waveform anaylsis. Ankle brachial indicies performed. Reason For Study: PVD Ordering Physician: RAFA SOLIS Performed By: Enrique Grove Measurements and Calculations Right Left CERTIFIED FIRE INVESTIGATOR PSV 264.0 216.6 cm/sec Prox PFA PSV -162.1 -113.1 cm/sec Prox SFA PSV 204.3 178.8 cm/sec Mid SFA PSV -146.7 -160.6 cm/sec Dist SFA PSV -164.2 -158.9 cm/sec Prox Pop A PSV 144.6 120.1 cm/sec Dist CATY PSV 118.2 114.1 cm/sec Dist SOLUTION CONSULTANT PSV 103.1 106.4 cm/sec Apollo Pedis PSV -118.8 -133.6 cm/sec Right Side Arterial Evaluation Normal velocity and triphasic waveforms noted from the Common Femoral artery to the infrageniculate vessels. 0 % stenosis . Ankle Brachial index is 1.1. Left Side Arterial Evaluation Normal velocity and triphasic waveforms noted from the Common Femoral artery to the infrageniculate vessels. 0 % stenosis . Ankle Brachial index is 1.2. Interpretation Summary No hemodynamically significant lesions in the bilateral lower extremities, on duplex imaging, at rest. : RAFA SOLIS > Sanju Merino
== END ==
LOC: SP 14:41
PROVIDERS: ATTEND Family Medicine Geriatric Medicine
DX: I73.9 Peripheral vascular disease, unspecified (principal)
CPT/HCPCS: 93925

== ENCOUNTER → 2018-07-01 | Outpatient (CLI) | payer MEDICARE ==
--- NOTE | 2018-07-01 11:23 | RADIOLOGY REPORT (SQ) ---
EXAM DESCRIPTION: DUPLEX ART/DEBRA FLOW COMPLETE COMPLETED DATE/TIME: 07/01/2018 10:46 am REASON FOR STUDY: R ARTERY STENOSIS I70.1 ATHEROSCLEROSIS OF RENAL ARTERY COMPARISON: None. TECHNIQUE: Realtime and static grayscale images acquired. Selected color Doppler, velocities and spe ctral images recorded. LIMITATIONS: None. FINDINGS: RIGHT KIDNEY: RENAL ARTERY VELOCITIES: 117.1 cm/sec. Segmental artery velocity 54.7 cm/sec. RENAL VEIN: Color doppler flow present, patent. VELOCITY RATIO: 1.1. Normal waveforms. KIDNEY: The right kidney measures 10.7 cm in length. No significant pathology. LEFT KIDNEY: RENAL ARTERY VELOCITIES: 87.5 cm/sec. Segmental artery velocity 73.3 cm/sec. RENAL VEIN: Color doppler flow present, patent. VELOCITY RATIO: 0.8. Normal waveforms. KIDNEY: The left kidney measures 10.2 cm in length. No significant pathology. BLADDER: Normal. OTHER: No other significant finding. IMPRESSION: NO DOPPLER EVIDENCE OF HEMODYNAMICALLY SIGNIFICANT RENAL ARTERY STENOSIS. COMMENT: NORMAL RENAL ARTERY/AORTA VELOCITY RATIO IS LESS THAN OR EQUAL TO 3.5. TECHNICAL DOCUMENTATION: JOB ID: [id number] [employer]- All Rights Reserved Reading location - IP[facility]workstation name: [facility]
== END ==
LOC: RAD 09:44
PROVIDERS: ATTEND Internal Medicine
DX: I70.1 Atherosclerosis of renal artery (principal)
CPT/HCPCS: 93975

== ENCOUNTER 2018-09-07 16:31 | Observation (INO) | payer MEDICARE ==
[2018-09-07] MEDS ORDERED: INSULIN LISPRO 100 UNIT/ML 3 ML VIAL SUBCUT PRN (17:31)
[2018-09-07] MEDS ORDERED: DEXTROSE 40% GEL 15 GM TUBE X 2 PO PRN ×2 (17:31→17:45)
[2018-09-07] MEDS ORDERED: DEXTROSE 40% GEL 15 GM TUBE PO PRN ×2 (17:31→17:45)
[2018-09-07] MEDS ORDERED: DEXTROSE 50%-WATER SYRINGE 12.5 GM/25 ML DOSE IV PRN ×2 (17:31→17:45)
[2018-09-07] MEDS ORDERED: GLUCAGON,HUMAN RECOMB 1 MG INJ IM PRN ×2 (17:31→17:45)
[2018-09-07] MEDS ORDERED: DEXTROSE 50%-WATER SYRINGE 25 GM/50 ML DOSE IV PRN ×2 (17:31→17:45)
[2018-09-07] MEDS ORDERED: ACETAMINOPHEN 325 MG TABLET PO PRN (17:36)
[2018-09-07 17:48] LABS: HEMATOCRIT 47.3 % (37.9-51.0); HEMOGLOBIN 16.4 g/dL (13.5-17.0); MEAN CORPUSCULAR HEMOGLOBIN 30.8 pg (27.0-33.4); MEAN CORPUSCULAR HGB CONC 34.8 g/dL (32.0-36.0); MEAN CORPUSCULAR VOLUME 89 fl (80-97); PLATELET COUNT 255 10^3/uL (150-450); RED BLOOD COUNT 5.34 10^6/uL (4.35-5.55); RED CELL DISTRIBUTION WIDTH 15.7 % (11.5-14.0); WHITE BLOOD COUNT 7.6 10^3/uL (4.0-10.5)
[2018-09-07] MEDS: INSULIN LISPRO 100 UNIT/ML 3 ML VIAL SUBCUT SCH (17:51)
[2018-09-07 18:06] LABS: ALANINE AMINOTRANSFERASE 18 U/L (21-72); ALBUMIN 4.4 g/dL (3.5-5.0); ALKALINE PHOSPHATASE 105 U/L (38-126); ANION GAP 12 (5-19); ASPARTATE AMINO TRANSFERASE 20 U/L (17-59); BILIRUBIN,DIRECT 0.1 mg/dL (0.0-0.4); BILIRUBIN,TOTAL 0.5 mg/dL (0.2-1.3); BLOOD UREA NITROGEN 14 mg/dL (7-20); CALCIUM 9.4 mg/dL (8.4-10.2); CARBON DIOXIDE 24 mmol/L (22-30); CHLORIDE 106 mmol/L (98-107); CREATINE KINASE 52 U/L (55-170); GLUCOSE 85 mg/dL (75-110); POTASSIUM 4.1 mmol/L (3.6-5.0); SODIUM 142.2 mmol/L (137-145); TOTAL PROTEIN 7.4 g/dL (6.3-8.2)
[2018-09-07 18:16] LABS: CREATINE KINASE MB 0.74 ng/mL (<4.55)
[2018-09-07 18:22] LABS: TROPONIN I < 0.012 ng/mL
[2018-09-07] MEDS ORDERED: METOPROLOL TARTRATE PF/INJ 5 MG/5 ML SDV IV PRN (18:48)
--- NOTE | 2018-09-07 20:08 | Progress Note ---
Provider Note Provider Note: Patient admitted with chest pain and shortness of breath. Gives history of diabetes, hypertension, marijuana smoking, elevated cholesterol. Blood pressure noted to be elevated on admission. Patient does give history of daytime sleepiness, fatigue and tiredness. He does have history of snoring. For further evaluation, will recommend a 2D echo, nuclear stress test and a PSG as an outpatient since patient has somewhat difficult to control hypertension. As usual I thank Dr. Doyle very much for the kind referral.
[2018-09-07] MEDS ORDERED: AMLODIPINE BESYLATE 10 MG TABLET PO ONE (21:00)
[2018-09-07] MEDS: HYDRALAZINE HCL 50 MG TABLET PO SCH (21:08)
[2018-09-07] MEDS ORDERED: ATORVASTATIN CALCIUM 40 MG TABLET PO SCH (22:00)
[2018-09-07] MEDS ORDERED: AMITRIPTYLINE HCL 25 MG TABLET PO SCH (22:00)
[2018-09-07] MEDS ORDERED: HYDRALAZINE HCL 25 MG TABLET PO SCH ×2 (22:00)
[2018-09-07 23:53] LABS: CREATINE KINASE MB 0.83 ng/mL (<4.55)
[2018-09-08] LABS: TROPONIN I < 0.012 ng/mL
[2018-09-08] MEDS: INSULIN LISPRO 100 UNIT/ML 3 ML VIAL SUBCUT SCH ×4 (00:09→17:15)
[2018-09-08] MEDS: HYDRALAZINE HCL 50 MG TABLET PO SCH ×3 (05:06→17:22)
[2018-09-08 05:31] LABS: CHOLESTEROL 168.26 mg/dL (0-200); CREATINE KINASE 48 U/L (55-170); TRIGLYCERIDES 253 mg/dL (<150)
[2018-09-08 05:43] LABS: DIRECT LDL 82 mg/dL (<100)
[2018-09-08 05:44] LABS: CREATINE KINASE MB 0.81 ng/mL (<4.55)
[2018-09-08 05:52] LABS: TROPONIN I < 0.012 ng/mL; VLDL CHOLESTEROL 50.6 mg/dL (10-31)
--- NOTE | 2018-09-08 07:33 | EKG REPORT ---
SEVERITY:- BORDERLINE ECG - SINUS RHYTHM PROBABLE LEFT ATRIAL ABNORMALITY : Confirmed by: Ron Otero MD 08-Sep-2018 07:33:05
--- NOTE | 2018-09-08 07:33 | EKG REPORT ---
SEVERITY:- NORMAL ECG - SINUS RHYTHM : Confirmed by: Ron Otero MD 08-Sep-2018 07:33:17
[2018-09-08] MEDS ORDERED: AMLODIPINE BESYLATE 10 MG TABLET PO SCH (10:00)
[2018-09-08] MEDS ORDERED: GLIMEPIRIDE 1 MG TABLET PO SCH (10:00)
[2018-09-08] MEDS ORDERED: LOSARTAN POTASSIUM 50 MG TABLET PO SCH (10:00)
[2018-09-08] MEDS ORDERED: ASPIRIN 81 MG TABLET, ENT COATED PO SCH (10:00)
[2018-09-08] MEDS ORDERED: HYDROCHLOROTHIAZIDE 25 MG TABLET PO SCH (10:00)
[2018-09-08] MEDS ORDERED: ENOXAPARIN SODIUM INJ 40 MG/0.4 ML DISP.SYRIN SUBCUT SCH (10:00)
--- NOTE | 2018-09-08 10:11 | PDOC CONSULTATION ---
Consultation Consult Date: 09/07/18 Attending physician:: BELKYS GIRALDO Consult reason:: Chest pain History of Present Illness Admission Date/PCP: 09/07/18 16:31 BELKYS GIRALDO MD Patient complains of: Chest pain and shortness of breath History of Present Illness: Patient is a elderly gentleman who was admitted through Dr. Giraldo office for complaints of progressive shortness of breath and also chest discomfort off and on on exertion. 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 Patient does give a history of marijuana smoking. He however denied any prior history of cardiac problems. Patient has noted difficult to control blood pressure. Patient noted to be on multiple antihypertensive. Patient does give history of snoring, denied any history of witnessed apnea but has noted fatigue and tiredness during the day. Patient denying any PND, orthopnea or chronic pedal edema. Patient denied any sustained palpitations, syncope, near syncope. Patient describes a history of heart catheterization in [place] about 10 years ago which he claims was negative. Past Medical History Cardiac Medical History: Reports: Hyperlipidema, Hypertension Denies: Coronary Artery Disease, Myocardial Infarction Pulmonary Medical History: Reports: Chronic Obstructive Pulmonary Disease (COPD) Denies: Asthma, Bronchitis, Pneumonia, Tuberculosis Neurological Medical History: Denies: Seizures Endocrine Medical History: Reports: Diabetes Mellitus Type 2 Renal/ Medical History: Denies: End Stage Renal Disease GI Medical History: Denies: Cirrhosis, Gastroesophageal Reflux Disease Musculoskeltal Medical History: Reports: Arthritis, Gout Psychiatric Medical History: Denies: Bipolar Disorder, Depression Hematology: Denies: Anemia, Bleeding Tendencies Past Surgical History Past Surgical History: Reports: Cardiac Catheterization Denies: Pacemaker Social History Information Source: Patient Smoking Status: Former Smoker Number of Years Smokin Frequency of Alcohol Use: None Hx Recreational Drug Use: Yes Drugs: Marijuana Hx Prescription Drug Abuse: No - Advance Directive Resuscitation Status: Full Code Surrogate healthcare decision maker:: Patient's ryan Family History Family History: Arthritis, Hyperlipidemia, Hypertension Parental Family History Reviewed: Yes Children Family History Reviewed: Yes Sibling(s) Family History Reviewed.: Yes Medication/Allergy Home Medications: Triamcinolone Acetonide [Aristocort 0.1% Cream] 1 applic TP BID 12/05/14 Atorvastatin Calcium 40 mg PO QHS 01/18/17 Aspirin [Aspirin EC] 81 mg PO DAILY 09/07/18 Clonidine HCl [Catapres 0.1 mg Tablet] 0.1 mg PO Q8 09/07/18 Hydralazine HCl [Apresoline 25 mg Tablet] 25 mg PO BID 09/07/18 Losartan/Hydrochlorothiazide [Losartan-Hctz 100-25 mg Tab] 1 each PO DAILY 09/07 Metoprolol Succinate [Toprol Xl 25 mg Tab.sr] 25 mg PO DAILY 09/07/18 Amitriptyline HCl [Elavil 25 mg Tablet] 25 mg PO QHS tablet 09/08/18 Amlodipine Besylate [Norvasc 10 mg Tablet] 10 mg PO DAILY tablet 09/08/18 Aspirin [Ecotrin 81 mg EC Tablet] 81 mg PO DAILY tabec 09/08/18 Atorvastatin Calcium [Lipitor 40 mg Tablet] 40 mg PO QHS tablet 09/08/18 Glimepiride [Amaryl 1 mg Tablet] 2 mg PO DAILY tablet 09/08/18 Hydrochlorothiazide [Hydrodiuril 25 mg Tablet] 25 mg PO DAILY tablet 09/08/18 Losartan Potassium [Cozaar 50 mg Tablet] 100 mg PO DAILY tablet 09/08/18 [place]-3 Acid Ethyl Esters [Lovaza 1 gm Capsule] 1 gm PO BID capsule 09/08/18 Allergies/Adverse Reactions: No Known Allergies Allergy (Verified 01/07/15 16:06) Review of Systems Review of Systems: Please see history of present illness and past medical history as wall. Constitutional: No fever or chills reported. Head : No recent chronic headaches, recent head injury. Eyes: No recent eye pain, diplopia, redness, discharge, acute visual changes. Ears: No recent chronic ear pain, acute hearing loss, ear discharge. Oral cavity: No recent ulcerations, bleeding, oral cavity discomfort. Neck: No recent acute neck pain reported. Hematologic: No recent easy bruising or bleeding. Lymphatic: No recent lymph node enlargement reported. Cardiovascular system review: See history of present illness. Respiratory system review: No hemoptysis or blood clots in the lungs reported. Mild Shortness of breath on exertion Gastrointestinal system review: Negative for any recent acute hematemesis, melena. Genitourinary system review: No recent acute or chronic hematuria, flank pain, UTI etc. reported. Skin system review: Negative for any recent abnormal bruising, no rash, no pruritus reported. Neurologic: No prior history of strokes, mini strokes, seizure disorder. Psychologic: No history of major psychosis or major depression reported. Musculoskeletal: Minor aches and pains reported. No acute joint swelling reported. Endocrine: No recent polyuria, polydipsia, recent heat or cold intolerance. Physical Exam Vital Signs: Temp Pulse Resp BP Pulse Ox 97.4 F 73 18 192/80 H 97 09/07/18 19:28 09/07/18 19:28 09/07/18 19:28 09/07/18 19:28 09/07/18 19:28 Intake & Output 09/06/18 09/07/18 09/08/18 06:59 06:59 06:59 Intake Total 237 Balance 237 Weight 92 kg Exam: GENERAL: well-nourished and in no acute distress. Alert and oriented x3 HEAD: Atraumatic, normocephalic. EYES: RANDAL, sclera anicteric, conjunctiva are normal. ENT: Moist mucous membranes. No oral ulcerations or bleeding gums noted. No obvious ear, nose or throat abnormalities noted. NECK: supple without lymphadenopathy. Trachea is central. No cervical or axillary lymphadenopathy noted. Carotids are 2+, JVD WNL LUNGS: Breath sounds clear bilaterally. No wheezes rales or rhonchi noted. No significant dullness noted on percussion. CHEST: Palpation of the chest wall shows no significant chest wall tenderness. HEART: Vincent MODEL AND DYE PERSON, No PSH, 1/6 JASON aortic area, 1/6 lao systolic murmur mitral area, no rubs, no gallops. ABDOMEN: Soft, no significant tenderness appreciated, normoactive bowel sounds. No guarding, no rebound. No rigidity noted . No masses appreciated. EXTREMITIES: Pedal pulses are 1-2+, no calf tenderness noted. No clubbing or cyanosis. negative pedal edema noted NEUROLOGICAL: Focused neurological exam showed no significant neurologic deficit. Normal speech, no focal weakness appreciated. PSYCH: Normal mood, normal affect. Judgment and insight within normal limits. SKIN: No significant ecchymosis, skin is noted to be warm. MUSCULOSKELETAL EXAM: No significant acute joint swelling noted. Results Laboratory Results: 09/07/18 17:35 09/07/18 17:35 09/07/18 09/07/18 17:35 17:35 WBC 7.6 RBC 5.34 Hgb 16.4 Hct 47.3 MCV 89 MCH 30.8 MCHC 34.8 RDW 15.7 H Plt Count 255 Sodium 142.2 Potassium 4.1 Chloride 106 Carbon Dioxide 24 Anion Gap 12 BUN 14 Creatinine 0.94 Est GFR ( Amer) > 60 Est GFR (Non-Af Amer) > 60 Glucose 85 Calcium 9.4 Total Bilirubin 0.5 AST 20 ALT 18 L Alkaline Phosphatase 105 Total Protein 7.4 Albumin 4.4 09/07/18 09/07/18 17:35 17:35 Creatine Kinase 52 L CK-MB (CK-2) 0.74 Troponin I < 0.012 EKG Comments: Sinus rhythm, no acute ST-T wave changes are noted Assessment & Plan - Diagnosis (1) Chest pain Qualifiers: Chest pain type: unspecified Qualified Code(s): R07.9 - Chest pain, unspecified Is this a current diagnosis for this admission?: Yes (2) Diabetes mellitus Qualifiers: Diabetes mellitus type: type 2 Diabetes mellitus longterm insulin use: without longterm use Diabetes mellitus complication status: without complication Qualified Code(s): E11.9 - Type 2 diabetes mellitus without complications Is this a current diagnosis for this admission?: Yes (3) Hypertension Qualifiers: Hypertension type: essential hypertension Qualified Code(s): I10 - Essential (primary) hypertension Is this a current diagnosis for this admission?: Yes (4) Sleep disorder Is this a current diagnosis for this admission?: Yes (5) Overweight Is this a current diagnosis for this admission?: Yes (6) Marijuana use Is this a current diagnosis for this admission?: Yes (7) Dyspnea Qualifiers: Dyspnea type: dyspnea on exertion Qualified Code(s): R06.09 - Other forms of dyspnea Is this a current diagnosis for this admission?: Yes - Notes Notes: Chest pain: Patient has multiple cardiac risk factors. There is intermediate probability that the chest discomfort is from underlying CAD. Patient therefore being scheduled for a nuclear stress test. Patient advised on risk factor modification. Dyspnea: Multifactorial. Possible ischemia equivalent symptom, possible diastolic dysfunction, systolic dysfunction, COPD etc. A 2D echocardiogram is been ordered. Hypertension: Blood pressure goal is 135/85 in this gentleman with diabetes. Currently on adequate regimen. Did start patient on Norvasc 10 mg p.o. daily. Diabetes: Recommend good management of blood sugar but avoid any hypo-or hyperglycemia. Sleep disordered breathing: This is strongly suspected since patient is on multiple antihypertensives and has difficult to control hypertension. Have recommended patient to undergo a sleep study. Overweight: Patient has been advised in weight loss. Marijuana abuse: Patient advised to quit marijuana abuse. - Time Time Spent: 30 to 50 Minutes - CODE STATUS was discussed, patient remains full code. Surrogate decision-maker patient's fianc. Multiple medical problems were addressed. More than 50% of the time spent coordinating care, discussing management plans with involved caregivers. Management plans discussed with involved personnels. Medical decision making was of moderate to high complexity , patient's has multiple comorbidities. Medications reviewed and adjusted accordingly: Yes
--- NOTE | 2018-09-08 10:48 | XCELERA REPORT ---
[address] [address] Transthoracic Echocardiogram Report Name: MICHAEL JIMENEZ Age: 73 yrs Gender: Male : 1945 Patient Status: Inpatient Patient Location: [address] [place], [place] [address] Study Date: 09/08/2018 10:16 AM Height: 72 in Weight: 202 lb BSA: 2.1 m2 Procedure: A complete two-dimensional transthoracic echocardiogram was performed (2D, M-mode, spectral and color flow Doppler). The study was technically adequate with some images being suboptimal in quality. Reason For Study: chest pain Ordering Physician: BELKYS GIRALDO Performed By: Tona Almeida Interpretation Summary The left ventricular ejection fraction is normal. There is mild concentric left ventricular hypertrophy. The left ventricle is grossly normal size. Doppler measurements suggest pseudonormalized left ventricular relaxation, which is associated with grade II/IV or mild to moderate diastolic dysfunction Wall motion cannot be accurately commented on, but no definite regional wall motion abnormalities noted. The right ventricular systolic function is normal. The left atrial size is normal. The right atrium is normal in size There is a trace amount of mitral regurgitation There is no mitral valve stenosis. No aortic regurgitation is present. There is no aortic valve stenosis There is a trace or physiologic amount of tricuspid regurgitation Tricuspid regurgitation jet envelope not well defined to measure RV systolic pressure accurately. The aortic root is not well visualized but is probably normal size. The inferior vena cava was not well visualized There is no pericardial effusion. MMode/2D Measurements & Calculations RVDd: 2.8 cm LVIDd: 4.6 cm FS: 38.1 % Ao root diam: 3.1 cm IVSd: 0.98 cm LVIDs: 2.9 cm EDV(Teich): 98.5 ml Ao root area: 7.6 cm2 LVPWd: 1.00 cm ESV(Teich): 31.2 ml LA dimension: 2.9 cm EF(Teich): 68.4 % Doppler Measurements & Calculations MV E max angel: MV P1/2t max angel: Ao V2 max: LV V1 max P.9 cm/sec 56.3 cm/sec 107.2 cm/sec 3.8 mmHg MV A max angel: MV P1/2t: 113.7 msec Ao max PG: LV V1 max: 87.5 cm/sec MVA(P1/2t): 1.9 cm2 4.6 mmHg 97.6 cm/sec MV E/A: 0.64 MV dec slope: 145.0 cm/sec2 MV dec time: 0.37 sec PA V2 max: MV P1/2t-pr_phl: 110.6 cm/sec 113.7 msec PA max P.9 mmHg Left Ventricle The left ventricle is grossly normal size. There is mild concentric left ventricular hypertrophy. The left ventricular ejection fraction is normal. Doppler measurements suggest pseudonormalized left ventricular relaxation, which is associated with grade II/IV or mild to moderate diastolic dysfunction. Wall motion cannot be accurately commented on, but no definite regional wall motion abnormalities noted. Right Ventricle The right ventricle is grossly normal size. There is normal right ventricular wall thickness. The right ventricular systolic function is normal. Atria The right atrium is normal in size. The left atrial size is normal. Interarterial septum not well visualized and not well dopplered. Cannot comment on ASD/PFO presence. Mitral Valve The mitral valve is grossly normal. There is no mitral valve stenosis. There is a trace amount of mitral regurgitation. Aortic Valve The aortic valve is grossly normal. There is no aortic valve stenosis. No aortic regurgitation is present. Tricuspid Valve The tricuspid valve is not well visualized, but is grossly normal. There is no tricuspid stenosis. There is a trace or physiologic amount of tricuspid regurgitation. Tricuspid regurgitation jet envelope not well defined to measure RV systolic pressure accurately. Pulmonic Valve The pulmonic valve is not well visualized. Great Vessels The aortic root is not well visualized but is probably normal size. The inferior vena cava was not well visualized. Effusions There is no pericardial effusion. : BELKYS GIRALDO > Tess Yap
[2018-09-08] MEDS: OMEGA-3 ACID ETHYL ESTERS 1 GM CAPSULE PO SCH ×2 (10:57→17:22)
--- NOTE | 2018-09-08 12:57 | DRAGON STRESS TEST REPORT ---
INTRAVENOUS LEXISCAN CARDIOLITE STRESS TEST USING SINGLE PHOTON EMMISION COMPUTERIZED TOMOGRAPHIC. DATE OF PROCEDURE: September 08, 2018, INDICATION : Chest pain CARDIAC RISK FACTORS: Diabetes, hypertension, dyslipidemia RESTING EKG: Sinus rhythm without any baseline ST-T wave changes STRESS EKG: No significant ST segment changes noted with LexiScan bolus REASON FOR TERMINATION: Protocol. PROCEDURE REPORT: Baseline heart rate 82 beats per minute with blood pressure of 149/62. Patient had no significant complaints. Patient was bolused with Lexiscan 0.4 mg intravenously followed by saline bolus. Heart rate at 2 minutes post bolus 105 with a blood pressure of 179/60. 3 minutes post bolus heart rate 100 with blood pressure of 171/65. No significant EKG changes were noted. Patient had no significant complaints during the procedure or postprocedure. CONCLUSIONS: Normal EKG and hemodynamic response to IV LexiScan. NUCLEAR DATA: At rest the patient was given 10.58 millicuries of technetium 99 sestamibi injected intravenously. As per protocol rest gated SPECT images were obtained. On day of stress test, the patient was given intravenous LexiScan at a dose of 0.4 mg in 5 mL intravenously, followed by flush with normal saline. Subsequently the stress dose of 30.8 millicuries of technetium 99 sestamibi was injected intravenously. As per protocol stress gated images were obtained. NUCLEAR INTERPRETATION: Both raw and processed data were used for interpretation. Visual, qualitative, computer-generated quantitative data was used. There was good myocardial uptake of technetium compound. Motion artifact and soft tissue attenuations were noted. Increased visceral uptake was noted. No definitive areas of transient perfusion defect noted, No definitive areas of fixed perfusion defect or scars noted. EKG gated imaging showed LV EF at 58 %, rest and stress gated EF similar visually. T. I D. ratio was 1.09. Lung heart ratio noted to be within normal limits 0.24. No significant extracardiac and abnormal radiotracer activities were noted. RV free wall uptake was noted to be WNL. IMPRESSION: Also refer to comments under nuclear interpretation. Also test results needs to be interpreted in the context of pretest probability. 1. No definitive areas of transient perfusion defect noted. 2. There is no definitive scintigraphic evidence of myocardial infarction/scar. 3. EKG gated imaging shows left ventricular ejection fraction of approx. 58 %. 4. Clinical correlation requested as worse disease and or balanced ischemia could be missed. In approximately 10% of the cases Lexiscan may not cause adequate vasodilatory stress. RECOMMENDATIONS: Aggressive risk factor modification and medical management. Further evaluation may be needed if continued symptoms or other high risk indicators are noted on clinical evaluation. Close cardiology follow-up is also recommended. Clinical correlation with echocardiogram derived ejection fraction. Inability to exercise by itself can lead to increased cardiovascular event risks. Consider cardiology consultation and or follow-up if clinically indicated. I am available for cardiology evaluation and consultation if requested by the instrument worker, unless patient already has a hand plug shaper. Dr. Micah Yap. MRCP Board certified in cardiology and sleep medicine. Board certified in nuclear cardiology, adult echocardiography. LINN
[2018-09-08] MEDS ORDERED: REGADENOSON INJ 0.4 MG/5 ML DISP.SYRIN IV ONE (14:22)
[2018-09-08] MEDS ORDERED: CLONIDINE HCL 0.1 MG TABLET PO ONE (14:30)
[2018-09-08 16:37] VITALS: BP 160/70
--- NOTE | 2018-09-08 19:10 | PDOC PROGRESS REPORT ---
Subjective Progress Note for:: 09/08/18 Subjective:: Patient seen multiple times. In the morning nuclear stress test procedure, risk benefits were discussed and nuclear stress test scheduled Patient seems to be doing better with gradual improvement. Pt is denying any chest arm or neck discomfort. Patient denying any PND, orthopnea. Patient denied any sustained palpitations, dizziness, syncope, near syncope. Patient denying any fever chills. Patient denying any other significant discomfort. Patient is maintaining sinus rhythm. Review of systems: Rest review of systems negative. Medications: Medications have been reviewed. Reason For Visit: CHEST PAIN Physical Exam Vital Signs: Temp Pulse Resp BP Pulse Ox 97.6 F 83 16 160/70 H 95 09/08/18 16:31 09/08/18 16:31 09/08/18 16:31 09/08/18 16:31 09/08/18 16:31 Intake & Output 09/07/18 09/08/18 09/09/18 06:59 06:59 06:59 Intake Total 455 500 Balance 455 500 Weight 92 kg Exam: GENERAL: well-nourished and in no acute distress. Alert and oriented x3 HEAD: Atraumatic, normocephalic. EYES: RANDAL, sclera anicteric, conjunctiva are normal. ENT: Moist mucous membranes. No oral ulcerations or bleeding gums noted. No obvious ear, nose or throat abnormalities noted. NECK: supple without lymphadenopathy. Trachea is central. No cervical or axillary lymphadenopathy noted. Carotids are 2+, JVD WNL LUNGS: Breath sounds clear bilaterally. No wheezes rales or rhonchi noted. No significant dullness noted on percussion. CHEST: Palpation of the chest wall shows no significant chest wall tenderness. 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 ABDOMEN: Soft, no significant tenderness appreciated, normoactive bowel sounds. No guarding, no rebound. No rigidity noted . No masses appreciated. EXTREMITIES: Pedal pulses are 1-2+, no calf tenderness noted. No clubbing or cyanosis. negative pedal edema noted NEUROLOGICAL: Focused neurological exam showed no significant neurologic deficit. Normal speech, no focal weakness appreciated. PSYCH: Normal mood, normal affect. Judgment and insight within normal limits. SKIN: No significant ecchymosis, skin is noted to be warm. MUSCULOSKELETAL EXAM: No significant acute joint swelling noted. Results Laboratory Results: 09/07/18 17:35 09/07/18 17:35 09/08/18 05:04 Triglycerides 253 H Cholesterol 168.26 LDL Cholesterol Direct 82 VLDL Cholesterol 50.6 H HDL Cholesterol 39 L 09/07/18 09/07/18 09/07/18 17:35 17:35 23:20 Creatine Kinase 52 L 48 L CK-MB (CK-2) 0.74 Troponin I < 0.012 09/07/18 09/08/18 09/08/18 23:20 05:04 05:04 Creatine Kinase 48 L CK-MB (CK-2) 0.83 0.81 Troponin I < 0.012 < 0.012 EKG Comments: Telemetry shows sinus rhythm without any sustained tachycardia or bradycardia. Assessment & Plan - Diagnosis (1) Chest pain Qualifiers: Chest pain type: unspecified Qualified Code(s): R07.9 - Chest pain, unspecified Is this a current diagnosis for this admission?: Yes (2) Diabetes mellitus Qualifiers: Diabetes mellitus type: type 2 Diabetes mellitus fpc insulin use: without fpc use Diabetes mellitus complication status: without complication Qualified Code(s): E11.9 - Type 2 diabetes mellitus without complications Is this a current diagnosis for this admission?: Yes (3) Hypertension Qualifiers: Hypertension type: essential hypertension Qualified Code(s): I10 - Essential (primary) hypertension Is this a current diagnosis for this admission?: Yes (4) Sleep disorder Is this a current diagnosis for this admission?: Yes (5) Overweight Is this a current diagnosis for this admission?: Yes (6) Marijuana use Is this a current diagnosis for this admission?: Yes (7) Dyspnea Qualifiers: Dyspnea type: dyspnea on exertion Qualified Code(s): R06.09 - Other forms of dyspnea Is this a current diagnosis for this admission?: Yes - Notes Notes: Chest pain: Patient has multiple cardiac risk factors. There is intermediate probability that the chest discomfort is from underlying CAD. Nuclear stress results were noted to be negative. Discussed that occasionally single vessel disease could be missed. Also informed that balanced ischemia can rarely be missed. Patient was told that further evaluation will become indicated if he/ she develops more symptoms indicative of ischemia or ischemia equivalent symptom. At this point however would recommend aggressive risk factor modification, medical therapy. Patient advised on risk factor modification. Dyspnea: Multifactorial. Possible ischemia equivalent symptom, possible diastolic dysfunction, systolic dysfunction, COPD etc. 2D echocardiogram actually shows normal LVEF with some diastolic dysfunction. Patient will benefit from smoking cessation, regular walking program, weight loss etc. Hypertension: Blood pressure goal is 135/85 in this gentleman with diabetes. Currently on adequate regimen. Recommend good blood pressure control. Patient can be seen in the office for follow-up. Diabetes: Recommend good management of blood sugar but avoid any hypo-or hyperglycemia. Sleep disordered breathing: This is strongly suspected since patient is on multiple antihypertensives and has difficult to control hypertension. Have recommended patient to undergo a sleep study. Overweight: Patient has been advised in weight loss. Marijuana abuse: Patient advised to quit marijuana abuse. - Time Time with patient: Greater than 35 minutes - Patient was seen multiple times. Total time exceeds 40 minutes. In the morning nuclear stress test procedure, risks benefits, alternatives were discussed. Patient seen during the stress test. Patient also seen after stress test when results were discussed with the patient in detail. Patient's questions were answered. Nuclear stress test results were discussed with the patient. Patient was informed that no definitive evidence of pharmacologic stress-induced ischemia noted. No definite fixed defects were noted. Patient informed that occasionally significant single vessel disease or balanced ischemia could be missed. However based on the current study results, would recommend aggressive risk factor modification and medical therapy. It may also be worthwhile to consider evaluation or empiric management of other causes of chest pain. Should no other cause be found and if persistent in having chest pain, then cardiac catheterization should be considered. Right now, recommendations are for aggressive risk factor modification and medical management. Medications reviewed and adjusted accordingly: Yes
--- NOTE | 2018-09-09 13:54 | PDOC H&P ---
History of Present Illness Admission Date/PCP: 09/07/18 16:31 BELKYS GIRALDO MD Patient complains of: She presents to the hospital after being seen in the office due to episodes of exertional shortness of breath chest heaviness for 72 hours increased with exertion and some dizziness. History of Present Illness: MICHAEL JIMENEZ is a 73 year old male Past Medical History Cardiac Medical History: Reports: Hyperlipidema, Hypertension Denies: Coronary Artery Disease, Myocardial Infarction Pulmonary Medical History: Reports: Chronic Obstructive Pulmonary Disease (COPD) Denies: Asthma, Bronchitis, Pneumonia, Tuberculosis Neurological Medical History: Denies: Seizures Endocrine Medical History: Reports: Diabetes Mellitus Type 2 Renal/ Medical History: Denies: End Stage Renal Disease GI Medical History: Denies: Cirrhosis, Gastroesophageal Reflux Disease Musculoskeltal Medical History: Reports: Arthritis, Gout Psychiatric Medical History: Denies: Bipolar Disorder, Depression Hematology: Denies: Anemia, Bleeding Tendencies Past Surgical History Past Surgical History: Reports: Cardiac Catheterization Denies: Pacemaker Social History Lives with: Spouse/Significant other Smoking Status: Former Smoker Number of Years Smokin Frequency of Alcohol Use: None Hx Recreational Drug Use: Yes Drugs: Marijuana Hx Prescription Drug Abuse: No Family History Family History: Arthritis, Hyperlipidemia, Hypertension Parental Family History Reviewed: Yes Children Family History Reviewed: Yes Sibling(s) Family History Reviewed.: Yes Medication/Allergy Home Medications: Triamcinolone Acetonide [Aristocort 0.1% Cream] 1 applic TP BID 12/05/14 Atorvastatin Calcium 40 mg PO QHS 01/18/17 Aspirin [Aspirin EC] 81 mg PO DAILY 09/07/18 Clonidine HCl [Catapres 0.1 mg Tablet] 0.1 mg PO Q8 09/07/18 Hydralazine HCl [Apresoline 25 mg Tablet] 25 mg PO BID 09/07/18 Losartan/Hydrochlorothiazide [Losartan-Hctz 100-25 mg Tab] 1 each PO DAILY 09/07 Metoprolol Succinate [Toprol Xl 25 mg Tab.sr] 25 mg PO DAILY 09/07/18 Amitriptyline HCl [Elavil 25 mg Tablet] 25 mg PO QHS tablet 09/08/18 Amlodipine Besylate [Norvasc 10 mg Tablet] 10 mg PO DAILY tablet 09/08/18 Aspirin [Ecotrin 81 mg EC Tablet] 81 mg PO DAILY tabec 09/08/18 Atorvastatin Calcium [Lipitor 40 mg Tablet] 40 mg PO QHS tablet 09/08/18 Glimepiride [Amaryl 1 mg Tablet] 2 mg PO DAILY tablet 09/08/18 Hydrochlorothiazide [Hydrodiuril 25 mg Tablet] 25 mg PO DAILY tablet 09/08/18 Losartan Potassium [Cozaar 50 mg Tablet] 100 mg PO DAILY tablet 09/08/18 [place]-3 Acid Ethyl Esters [Lovaza 1 gm Capsule] 1 gm PO BID capsule 09/08/18 Allergies/Adverse Reactions: No Known Allergies Allergy (Verified 01/07/15 16:06) Review of Systems Constitutional: ABSENT: chills, fever(s), headache(s), weight gain, weight loss Eyes: ABSENT: visual disturbances Ears: ABSENT: hearing changes Cardiovascular: PRESENT: chest pain, dyspnea on exertion Respiratory: ABSENT: cough, hemoptysis Gastrointestinal: ABSENT: abdominal pain, constipation, diarrhea, hematemesis, hematochezia, nausea, vomiting Genitourinary: ABSENT: dysuria, hematuria Musculoskeletal: ABSENT: joint swelling Integumentary: ABSENT: rash, wounds Neurological: ABSENT: abnormal gait, abnormal speech, confusion, dizziness, focal weakness, syncope Psychiatric: ABSENT: anxiety, depression, homidical ideation, suicidal ideation Endocrine: ABSENT: cold intolerance, heat intolerance, menstrual abnormalities, polydipsia, polyuria Hematologic/Lymphatic: ABSENT: easy bleeding, easy bruising, lymphadenopathy Physical Exam Vital Signs: Temp Pulse Resp BP Pulse Ox 97.6 F 83 16 160/70 H 95 09/08/18 16:31 09/08/18 16:31 09/08/18 16:31 09/08/18 16:31 09/08/18 16:31 Intake & Output 09/08/18 09/09/18 09/10/18 06:59 06:59 06:59 Intake Total 455 500 Balance 455 500 Weight 92 kg General appearance: PRESENT: no acute distress Head exam: PRESENT: atraumatic, normocephalic Eye exam: PRESENT: conjunctiva pink, EOMI, PERRLA. ABSENT: scleral icterus Ear exam: PRESENT: normal external ear exam Mouth exam: PRESENT: moist, tongue midline Neck exam: PRESENT: full ROM. ABSENT: carotid bruit, JVD, lymphadenopathy, thyromegaly Respiratory exam: PRESENT: clear to auscultation sohan Cardiovascular exam: PRESENT: +S2 Murmur grade: 2 Pulses: PRESENT: normal dorsalis pedis pul, +2 pedal pulses bilateral Vascular exam: PRESENT: normal capillary refill GI/Abdominal exam: PRESENT: normal bowel sounds, soft. ABSENT: distended, guarding, mass, organolmegaly, rebound, tenderness Rectal exam: PRESENT: deferred Extremities exam: PRESENT: full ROM Musculoskeletal exam: PRESENT: ambulatory Neurological exam: PRESENT: alert, awake, oriented to person, oriented to place , oriented to time, oriented to situation, CN II-XII grossly intact. ABSENT: motor sensory deficit Psychiatric exam: PRESENT: appropriate affect, normal mood. ABSENT: homicidal ideation, suicidal ideation Skin exam: PRESENT: dry, intact, warm. 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 (2) Diabetes mellitus Qualifiers: Diabetes mellitus type: type 2 Diabetes mellitus director long term care insulin use: without director long term care use Diabetes mellitus complication status: without complication Qualified Code(s): E11.9 - Type 2 diabetes mellitus without complications Is this a current diagnosis for this admission?: Yes Plan: Plan we will order Accu-Cheks with Humalog sliding scale we will start his Amaryl 1 mg daily. (3) Hypertension Qualifiers: Hypertension type: essential hypertension Qualified Code(s): I10 - Essential (primary) hypertension Is this a current diagnosis for this admission?: Yes Plan: Plan we will increase his beta-abilio, continue losartan continue hydrochlorothiazide continue amlodipine we will give a as needed metoprolol IV. 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
--- NOTE | 2018-09-09 13:57 | PDOC DISCHARGE SUMMARY ---
General - Admit/Disc Date/PCP Admission Date/Primary Care Provider: 09/07/18 16:31 BELKYS GIRALDO MD Discharge Date: 09/08/18 - Discharge Diagnosis (1) Chest pain Is this a current diagnosis for this admission?: Yes (2) Diabetes mellitus Is this a current diagnosis for this admission?: Yes (3) Hypertension Is this a current diagnosis for this admission?: Yes - Additional Information Discharge Diet: Cardiac, Diabetic Discharge Activity: Activity As Tolerated Home Medications: Triamcinolone Acetonide [Aristocort 0.1% Cream] 1 applic TP BID 12/05/14 Atorvastatin Calcium 40 mg PO QHS 01/18/17 Aspirin [Aspirin EC] 81 mg PO DAILY 09/07/18 Clonidine HCl [Catapres 0.1 mg Tablet] 0.1 mg PO Q8 09/07/18 Hydralazine HCl [Apresoline 25 mg Tablet] 25 mg PO BID 09/07/18 Losartan/Hydrochlorothiazide [Losartan-Hctz 100-25 mg Tab] 1 each PO DAILY 09/07 Metoprolol Succinate [Toprol Xl 25 mg Tab.sr] 25 mg PO DAILY 09/07/18 Amitriptyline HCl [Elavil 25 mg Tablet] 25 mg PO QHS tablet 09/08/18 Amlodipine Besylate [Norvasc 10 mg Tablet] 10 mg PO DAILY tablet 09/08/18 Aspirin [Ecotrin 81 mg EC Tablet] 81 mg PO DAILY tabec 09/08/18 Atorvastatin Calcium [Lipitor 40 mg Tablet] 40 mg PO QHS tablet 09/08/18 Glimepiride [Amaryl 1 mg Tablet] 2 mg PO DAILY tablet 09/08/18 Hydrochlorothiazide [Hydrodiuril 25 mg Tablet] 25 mg PO DAILY tablet 09/08/18 Losartan Potassium [Cozaar 50 mg Tablet] 100 mg PO DAILY tablet 09/08/18 [place]-3 Acid Ethyl Esters [Lovaza 1 gm Capsule] 1 gm PO BID capsule 09/08/18 History of Present Illness History of Present Illness: MICHAEL JIMENEZ is a 73 year old male Hospital Course Hospital Course: Patient was admitted serial cardiac enzymes were negative x3 EKG showed no evidence of acute ST-T wave changes, lunchroom monitor showed no evidence of tachybradycardia arrhythmias. He underwent an echocardiogram which showed ejection fraction 60% diastolic dysfunction grade 2-4, mild mitral regurgitation. Because he was intermediate chest pain repeat underwent a Lexiscan stress test which showed no evidence of acute or reversible ischemic changes after this he was felt stable to discharge throughout his hospital course his blood sugar stayed within the reasonable range of 120-180 without any hypoglycemic episodes. His blood pressure medication while in the hospital was adjusted. After discussion with cardiology was felt patient was stable for discharge. Physical Exam Vital Signs: Temp Pulse Resp BP Pulse Ox 97.6 F 83 16 160/70 H 95 09/08/18 16:31 09/08/18 16:31 09/08/18 16:31 09/08/18 16:31 09/08/18 16:31 Intake & Output 09/08/18 09/09/18 09/10/18 06:59 06:59 06:59 Intake Total 455 500 Balance 455 500 Weight 92 kg General appearance: PRESENT: no acute distress, well-developed, well-nourished Head exam: PRESENT: atraumatic, normocephalic Eye exam: PRESENT: conjunctiva pink, EOMI, PERRLA. ABSENT: scleral icterus Ear exam: PRESENT: normal external ear exam Mouth exam: PRESENT: moist, tongue midline Neck exam: PRESENT: full ROM. ABSENT: carotid bruit, JVD, lymphadenopathy, thyromegaly Respiratory exam: PRESENT: clear to auscultation sohan Cardiovascular exam: PRESENT: systolic murmur Murmur grade: 2 Pulses: PRESENT: normal dorsalis pedis pul, +2 pedal pulses bilateral Vascular exam: PRESENT: normal capillary refill GI/Abdominal exam: PRESENT: normal bowel sounds, soft. ABSENT: distended, guarding, mass, organolmegaly, rebound, tenderness Rectal exam: PRESENT: deferred Extremities exam: PRESENT: full ROM Musculoskeletal exam: PRESENT: ambulatory Neurological exam: PRESENT: alert, awake, oriented to person, oriented to place , oriented to time, oriented to situation, CN II-XII grossly intact. ABSENT: motor sensory deficit Psychiatric exam: PRESENT: appropriate affect, normal mood. ABSENT: homicidal ideation, suicidal ideation Skin exam: PRESENT: dry, intact, warm. ABSENT: cyanosis, rash Results Laboratory Results: 09/07/18 17:35 09/07/18 17:35 09/07/18 09/07/18 09/07/18 17:35 17:35 23:20 Creatine Kinase 52 L 48 L CK-MB (CK-2) 0.74 Troponin I < 0.012 09/07/18 09/08/18 09/08/18 23:20 05:04 05:04 Creatine Kinase 48 L CK-MB (CK-2) 0.83 0.81 Troponin I < 0.012 < 0.012 Qualifiers - * PATIENT BEING DISCHARGED WITH ANY OF THE FOLLOWING DIAGNOSIS: No Plan Discharge Plan: Medication reconciliation was done he will be discharged home he will follow-up in the office in 24 hours and he will have outpatient follow-up with cardiology for sleep study. Time Spent: Less than 30 Minutes
== END 2018-09-08 17:40 | disposition home or self-care (01) ==
LOC: 3W 16:31 → INTOOBSV 16:31
PROVIDERS: ADMIT Internal Medicine; ATTEND Internal Medicine
DX: R07.9 Chest pain, unspecified (principal); E11.9 Type 2 diabetes mellitus without complications; I10 Essential (primary) hypertension; R00.0 Tachycardia, unspecified; I34.0 Nonrheumatic mitral (valve) insufficiency; R53.83 Other fatigue; G47.9 Sleep disorder, unspecified; E66.3 Overweight; R06.09 Other forms of dyspnea; F12.10 Cannabis abuse, uncomplicated; R42 Dizziness and giddiness; Z79.899 Other long term (current) drug therapy; Z79.82 Long term (current) use of aspirin; Z87.891 Personal history of nicotine dependence; Z82.49 Family history of ischemic heart disease and other diseases of the circulatory system
CPT/HCPCS: 36415 ×2; 82553 ×2; 82962 ×2; 82550 ×2; 85027; 80053; 84484 ×2; 80061; 93306; 93017; 78452; 93005 ×2; 93010 ×2; A9500; J2785; A9270 ×10; J3490; J1650; Q9969

== ENCOUNTER → 2019-01-04 | Outpatient (CLI) | payer MEDICARE ==
[2019-01-04 09:40] LABS: C-REACTIVE PROTEIN 13.7 mg/L (<10.0); CHOLESTEROL 231.73 mg/dL (0-200); TRIGLYCERIDES 326 mg/dL (<150); URIC ACID 7.8 mg/dL (3.5-8.5)
[2019-01-04 09:48] LABS: DIRECT LDL 92 mg/dL (<100); VLDL CHOLESTEROL 65.2 mg/dL (10-31)
== END ==
LOC: LAB 08:27
PROVIDERS: ATTEND Internal Medicine
DX: M10.9 Gout, unspecified (principal); E11.8 Type 2 diabetes mellitus with unspecified complications; E78.5 Hyperlipidemia, unspecified; M19.90 Unspecified osteoarthritis, unspecified site
CPT/HCPCS: 36415; 80061; 83036; 84550; 85652; 86140; 86430

== ENCOUNTER → 2019-04-05 | Outpatient (CLI) | payer MEDICARE | LOC: LAB 06:55 | PROVIDERS: ATTEND Internal Medicine | DX: E29.1 Testicular hypofunction (principal) | CPT/HCPCS: 36415; 84403 ==

== ENCOUNTER → 2019-05-18 | Outpatient (CLI) | payer MEDICARE ==
[2019-05-18 08:40] LABS: ALANINE AMINOTRANSFERASE 16 U/L (21-72); ALBUMIN 3.9 g/dL (3.5-5.0); ALKALINE PHOSPHATASE 81 U/L (38-126); ANION GAP 7 (5-19); ASPARTATE AMINO TRANSFERASE 21 U/L (17-59); BILIRUBIN,DIRECT 0.3 mg/dL (0.0-0.4); BILIRUBIN,TOTAL 0.4 mg/dL (0.2-1.3); BLOOD UREA NITROGEN 11 mg/dL (7-20); CALCIUM 8.9 mg/dL (8.4-10.2); CARBON DIOXIDE 25 mmol/L (22-30); CHLORIDE 108 mmol/L (98-107); CHOLESTEROL 185.55 mg/dL (0-200); GLUCOSE 113 mg/dL (75-110); POTASSIUM 4.1 mmol/L (3.6-5.0); SODIUM 140.3 mmol/L (137-145); TOTAL PROTEIN 6.9 g/dL (6.3-8.2); TRIGLYCERIDES 256 mg/dL (<150)
[2019-05-18 08:51] LABS: DIRECT LDL 90 mg/dL (<100)
[2019-05-18 08:58] LABS: VLDL CHOLESTEROL 51.2 mg/dL (10-31)
== END ==
LOC: LAB 08:01
PROVIDERS: ATTEND Internal Medicine
DX: E78.5 Hyperlipidemia, unspecified (principal); E11.9 Type 2 diabetes mellitus without complications; R10.9 Unspecified abdominal pain; I10 Essential (primary) hypertension
CPT/HCPCS: 36415; 80048; 80061; 80076; 83036

== ENCOUNTER → 2019-10-25 | Outpatient (CLI) | payer MEDICARE ==
[2019-10-25 09:10] LABS: ABSOLUTE EOSINOPHILS # (AUTO) 0.1 10^3/uL (0.0-0.6); ABSOLUTE LYMPHOCYTES (AUTO) 2.1 10^3/uL (0.5-4.7); ABSOLUTE MONOCYTES (AUTO) 0.5 10^3/uL (0.1-1.4); ABSOLUTE NEUT (AUTO) 2.8 10^3/uL (1.7-8.2); BASOPHILS % (AUTO) 0.8 % (0-2); EOSINOPHILS % (AUTO) 2.7 % (0-6); HEMATOCRIT 48.6 % (37.9-51.0); HEMOGLOBIN 16.5 g/dL (13.5-17.0); MEAN CORPUSCULAR HEMOGLOBIN 30.1 pg (27.0-33.4); MEAN CORPUSCULAR VOLUME 89 fl (80-97); PLATELET COUNT 271 10^3/uL (150-450); RED BLOOD COUNT 5.48 10^6/uL (4.35-5.55); SEGMENTED NEUTROPHILS % (AUTO) 50.5 % (42-78); TOTAL CELLS COUNTED % (AUTO) 100 %; WHITE BLOOD COUNT 5.6 10^3/uL (4.0-10.5)
[2019-10-26 11:37] LABS: CREATININE URINE 55.9 mg/dL (Not Estab.); MICROALBUMIN URINE 15.7 ug/mL (Not Estab.)
== END ==
LOC: LAB 08:41
PROVIDERS: ATTEND Family Medicine
DX: E78.5 Hyperlipidemia, unspecified (principal); R10.0 Acute abdomen; E11.42 Type 2 diabetes mellitus with diabetic polyneuropathy; N40.0 Benign prostatic hyperplasia without lower urinary tract symptoms; D64.9 Anemia, unspecified
CPT/HCPCS: 36415; 82043; 82570; 83036; 85025

== ENCOUNTER → 2020-02-24 | Outpatient (CLI) | payer MEDICARE ==
[2020-02-24 09:56] LABS: ALBUMIN 4.2 g/dL (3.5-5.0); ALKALINE PHOSPHATASE 83 U/L (38-126); ASPARTATE AMINO TRANSFERASE 24 U/L (17-59); BILIRUBIN,TOTAL 0.5 mg/dL (0.2-1.3); CHOLESTEROL 198.47 mg/dL (0-200); TOTAL PROTEIN 7.2 g/dL (6.3-8.2); TRIGLYCERIDES 313 mg/dL (<150)
[2020-02-24 10:07] LABS: DIRECT LDL 83 mg/dL (<100)
[2020-02-24 10:09] LABS: VLDL CHOLESTEROL 62.6 mg/dL (10-31)
== END ==
LOC: OD 08:28
PROVIDERS: ATTEND Family Medicine
DX: E78.5 Hyperlipidemia, unspecified (principal); E11.9 Type 2 diabetes mellitus without complications
CPT/HCPCS: 36415; 80061; 80076; 83036

== ENCOUNTER → 2020-05-25 | Outpatient (CLI) | payer MEDICARE ==
[2020-05-25 08:38] LABS: ALBUMIN 3.9 g/dL (3.5-5.0); ALKALINE PHOSPHATASE 86 U/L (38-126); ASPARTATE AMINO TRANSFERASE 18 U/L (17-59); BILIRUBIN,TOTAL 0.5 mg/dL (0.2-1.3); CHOLESTEROL 173.64 mg/dL (0-200); TOTAL PROTEIN 6.9 g/dL (6.3-8.2); TRIGLYCERIDES 364 mg/dL (<150)
[2020-05-25 08:49] LABS: DIRECT LDL 54 mg/dL (<100)
[2020-05-25 08:53] LABS: VLDL CHOLESTEROL 72.8 mg/dL (10-31)
== END ==
LOC: OD 07:38
PROVIDERS: ATTEND Family Medicine
DX: E78.5 Hyperlipidemia, unspecified (principal)
CPT/HCPCS: 36415; 80061; 80076

== ENCOUNTER → 2020-06-23 | Outpatient (CLI) | payer MEDICARE ==
[2020-06-23 09:57] LABS: ANION GAP 12 (5-19); BLOOD UREA NITROGEN 17 mg/dL (7-20); CALCIUM 9.5 mg/dL (8.4-10.2); CARBON DIOXIDE 24 mmol/L (22-30); CHLORIDE 103 mmol/L (98-107); GLUCOSE 131 mg/dL (75-110); POTASSIUM 4.3 mmol/L (3.6-5.0)
== END ==
LOC: OD 08:34
PROVIDERS: ATTEND Family Medicine
DX: E11.9 Type 2 diabetes mellitus without complications (principal)
CPT/HCPCS: 36415; 80048; 83036

== ENCOUNTER → 2020-11-24 | Outpatient (CLI) | payer MEDICARE ==
[2020-11-24 10:50] LABS: ALBUMIN 4.2 g/dL (3.5-5.0); ALKALINE PHOSPHATASE 102 U/L (38-126); ANION GAP 9 (5-19); ASPARTATE AMINO TRANSFERASE 26 U/L (17-59); BILIRUBIN,DIRECT 0.2 mg/dL (0.0-0.4); BILIRUBIN,TOTAL 0.5 mg/dL (0.2-1.3); BLOOD UREA NITROGEN 13 mg/dL (7-20); CALCIUM 9.5 mg/dL (8.4-10.2); CARBON DIOXIDE 27 mmol/L (22-30); CHLORIDE 103 mmol/L (98-107); CHOLESTEROL 130.84 mg/dL (0-200); GLUCOSE 142 mg/dL (75-110); POTASSIUM 4.4 mmol/L (3.6-5.0); TOTAL PROTEIN 7.5 g/dL (6.3-8.2); TRIGLYCERIDES 234 mg/dL (<150)
[2020-11-24 11:03] LABS: DIRECT LDL 46 mg/dL (<100)
[2020-11-24 11:31] LABS: VLDL CHOLESTEROL 46.8 mg/dL (10-31)
[2020-11-26 07:37] LABS: CREATININE URINE 160.7 mg/dL (Not Estab.); MICROALBUMIN URINE 8.6 ug/mL (Not Estab.)
== END ==
LOC: OD 08:26
PROVIDERS: ATTEND Family Medicine
DX: E11.9 Type 2 diabetes mellitus without complications (principal); E78.5 Hyperlipidemia, unspecified
CPT/HCPCS: 36415; 80053; 80061; 82043; 82570; 83036